=== PATIENT | male | born 1940 | race Caucasian/White ===

== ENCOUNTER 2016-08-09 10:02 | Outpatient (CLI) | payer MEDICARE ==
[2016-08-09 10:24] LABS: Bilirubin Negative (Negative); Blood, Urine Negative (Negative); Clarity Clear (Clear); Glucose, Urine (Dipstick) Negative (Negative); Leukocyte Negative (Negative); Nitrite Negative (Negative); Protein, Urine (Dipstick) Negative (Neg-Trace); Urobilinogen 0.2 mg/dL (0.2-1.0)
[2016-08-09 10:36] LABS: #Basophils 0.1 thou/uL (0.0-0.2); #Eosinphils 0.2 thou/uL (0.0-0.7); #Lymphocytes 1.8 thou/uL (1.20-3.40); #Monocytes 0.6 thou/uL (0.11-0.59); #Neutrophils 3.4 thou/uL (1.40-6.50); %Basophils 1.2 % (0.0-1.0); %Eosinophils 3.2 % (0.0-10.0); %Lymphocytes 30.1 % (21.0-51.0); %Monocytes 9.5 % (0.0-10.0); %Neutrophils 55.9 % (42.0-75.0); Hemoglobin 15.8 g/dL (14.0-18.0); Mean Corpuscular HGB CONC 34.4 g/dL (32.0-36.0); Mean Corpuscular Hemoglobin 33.1 pg (27.0-31.0); Mean Corpuscular Volume 96.2 fl (80.0-94.0); Mean Platelet Volume 6.4 fL (7.4-10.4); Platelet Count 193 thou/uL (130-400); RBC Distribution Width 12.6 % (11.5-14.5); Red Blood Cell (RBC) Count 4.78 mill/uL (4.70-6.10); White Blood Cell (WBC) Count 6.1 thou/uL (4.8-10.8)
[2016-08-09 10:42] LABS: RBC/HPF 0-3 HPF (0-3)
[2016-08-09 11:32] LABS: ALT (SGPT) 46 U/L (0-55); AST (SGOT) 33 U/L (5-34); Alkaline Phosphatase 63 U/L (40-150); Anion Gap 15 mmol/L (10-20); BUN (Urea Nitrogen) 19 mg/dL (8.4-25.7); Bilirubin, Total 0.6 mg/dL (0.2-1.2); Calc. Creatinine Clearance 0 mL/min (70-130); Calcium 9.6 mg/dL (7.8-10.44); Carbon Dioxide 22 mmol/L (23-31); Chloride 110 mmol/L (98-107); Cholesterol 121 mg/dL (< 200 Desired); Estimated GFR-MDRD Greater than 90; Globulin 2.8 g/dL (2.4-3.5); Glucose 118 mg/dL (83-110); HDL Cholesterol 41 mg/dL (>60 Neg Risk); LDL Cholesterol, Calculated 67 mg/dL; Protein, Total 6.8 g/dL (5.8-8.1); Sodium 143 mmol/L (136-145); Triglycerides 63 mg/dL (Less than 150)
== END 2016-08-09 10:03 | disposition home or self-care (01) ==
LOC: MADLABBHPM 10:02
PROVIDERS: ATTEND Internal Medicine Cardiovascular Disease
DX: E78.00 Pure hypercholesterolemia, unspecified (principal); I25.10 Atherosclerotic heart disease of native coronary artery without angina pectoris
CPT/HCPCS: 36415; 80053; 80061; 81001; 84443; 85025

== ENCOUNTER 2016-12-29 09:53 | Outpatient (CLI) | payer MEDICARE ==
[2016-12-29 10:50] LABS: #Basophils 0.1 thou/uL (0.0-0.2); #Eosinphils 0.3 thou/uL (0.0-0.7); #Lymphocytes 1.9 thou/uL (1.20-3.40); #Monocytes 0.5 thou/uL (0.11-0.59); #Neutrophils 3.7 thou/uL (1.40-6.50); %Basophils 1.3 % (0.0-1.0); %Eosinophils 5.1 % (0.0-10.0); %Lymphocytes 29.9 % (21.0-51.0); %Monocytes 7.4 % (0.0-10.0); %Neutrophils 56.3 % (42.0-75.0); Hemoglobin 15.9 g/dL (14.0-18.0); Mean Corpuscular HGB CONC 33.3 g/dL (32.0-36.0); Mean Corpuscular Hemoglobin 31.3 pg (27.0-31.0); Mean Corpuscular Volume 94.1 fl (80.0-94.0); Mean Platelet Volume 7.1 fL (7.4-10.4); Platelet Count 216 thou/uL (130-400); RBC Distribution Width 12.6 % (11.5-14.5); Red Blood Cell (RBC) Count 5.08 mill/uL (4.70-6.10); White Blood Cell (WBC) Count 6.5 thou/uL (4.8-10.8)
[2016-12-29 11:18] LABS: ALT (SGPT) 47 U/L (8-55); AST (SGOT) 37 U/L (5-34); Alkaline Phosphatase 59 U/L (40-150); Anion Gap 13 mmol/L (10-20); BUN (Urea Nitrogen) 21 mg/dL (8.4-25.7); Bilirubin, Direct 0.4 mg/dL (0.1-0.3); Bilirubin, Total 0.8 mg/dL (0.2-1.2); Calc. Creatinine Clearance 0 mL/min (70-130); Calcium 9.8 mg/dL (7.8-10.44); Carbon Dioxide 25 mmol/L (23-31); Cardiac Risk 2.4 (Less than 4.5); Chloride 107 mmol/L (98-107); Cholesterol 115 mg/dl (< 200 Desired); Estimated GFR-MDRD 77; Globulin 3.1 g/dL (2.4-3.5); Glucose 105 mg/dL (83-110); HDL Cholesterol 48 mg/dL (>60 Neg Risk); LDL Cholesterol, Calculated 58 mg/dL; Potassium 4.2 mmol/L (3.5-5.1); Protein, Total 7.1 g/dL (5.8-8.1); Sodium 141 mmol/L (136-145); Triglycerides 43 mg/dL (Less than 150)
== END 2016-12-29 09:54 | disposition home or self-care (01) ==
LOC: MADLAB 09:53
PROVIDERS: ATTEND Internal Medicine Cardiovascular Disease
DX: E78.5 Hyperlipidemia, unspecified (principal); E78.00 Pure hypercholesterolemia, unspecified; I25.10 Atherosclerotic heart disease of native coronary artery without angina pectoris; I10 Essential (primary) hypertension
CPT/HCPCS: 36415; 80053; 80061; 82248; 85025

== ENCOUNTER 2018-07-03 17:30 | Outpatient (CLI) | payer MEDICARE ==
--- NOTE | 2018-07-03 18:34 | RAD ---
LEFT WRIST TWO VIEWS: History: Fall. Left wrist pain. FINDINGS: Overlying fiberglass splint obscures detail. Mild impaction at a distal radial metaphyseal fracture. Neutral tilt. Inclination is maintained. Minimal ulna negative variant remains. Scaphoid waist is int act. Mild osteoarthritic changes throughout the wrist. Erosion at the base of the triquetral. IMPRESSION: 1. Mildly impacted distal radial fracture with neutral tilt. 2. Mild osteoarthritic changes. POS: [facility]
== END 2018-07-03 17:31 | disposition home or self-care (01) ==
LOC: MADRAD 17:30
PROVIDERS: ATTEND Family Medicine
DX: M25.532 Pain in left wrist (principal); S52.502A Unspecified fracture of the lower end of left radius, initial encounter for closed fracture; M19.032 Primary osteoarthritis, left wrist

== ENCOUNTER 2020-03-10 11:45 | Outpatient (CLI) | payer MEDICARE ==
[2020-03-10 12:28] LABS: INR-International Normal Ratio 1.9; Prothrombin Time 22.1 sec (12.0-14.7)
[2020-03-10 12:36] LABS: #Basophils 0.1 thou/uL (0.0-0.2); #Eosinphils 0.2 thou/uL (0.0-0.7); #Lymphocytes 1.4 thou/uL (1.20-3.40); #Monocytes 0.5 thou/uL (0.11-0.59); #Neutrophils 3.6 thou/uL (1.40-6.50); %Basophils 1.4 % (0.0-1.0); %Lymphocytes 24.9 % (21.0-51.0); %Monocytes 8.7 % (0.0-10.0); %Neutrophils 62.1 % (42.0-75.0); Anisocytosis SLIGHT = 6-15 cells (100X) (0-5/hpf); Hemoglobin 10.1 g/dL (14.0-18.0); Hypochromia SLIGHT = 6-15 cells (100X) (0-5/hpf); MDiff Complete? YES; Macrocytosis SLIGHT = 6-15 cells (100X) (0-5/hpf); Mean Corpuscular HGB CONC 30.1 g/dL (32.0-36.0); Mean Corpuscular Hemoglobin 24.7 pg (27.0-31.0); Mean Corpuscular Volume 82.1 fL (78.0-98.0); Mean Platelet Volume 7.2 fL (7.4-10.4); Microcytosis SLIGHT = 6-15 cells (100X) (0-5/hpf); Platelet Count 149 thou/uL (130-400); Platelet Morphology Comment Appears Adequate; RBC Distribution Width 18.1 % (11.5-14.5); Red Blood Cell (RBC) Count 4.09 mill/uL (4.70-6.10); White Blood Cell (WBC) Count 5.8 thou/uL (4.8-10.8)
[2020-03-10 12:39] LABS: ALT (SGPT) 25 U/L (8-55); AST (SGOT) 35 U/L (5-34); Albumin 3.9 g/dL (3.4-4.8); Alkaline Phosphatase 81 U/L (40-110); Anion Gap 16 mmol/L (10-20); BUN (Urea Nitrogen) 25 mg/dL (8.4-25.7); Bilirubin, Total 1.2 mg/dL (0.2-1.2); Calc. Creatinine Clearance 0 mL/min (70-130); Calcium 9.4 mg/dL (7.8-10.44); Carbon Dioxide 22 mmol/L (23-31); Cardiac Risk 1.8 (Less than 4.5); Chloride 110 mmol/L (98-107); Cholesterol 66 mg/dl (< 200 Desired); Estimated GFR-MDRD 54; Globulin 2.9 g/dL (2.4-3.5); Glucose 91 mg/dL (83-110); HDL Cholesterol 37 mg/dL (>60 Neg Risk); LDL Cholesterol, Calculated 22 mg/dL; Potassium 4.5 mmol/L (3.5-5.1); Protein, Total 6.8 g/dL (5.8-8.1); Sodium 143 mmol/L (136-145); Triglycerides 33 mg/dL (Less than 150)
== END 2020-03-10 11:46 | disposition home or self-care (01) ==
LOC: MADLAB 11:45
PROVIDERS: ATTEND Family Medicine
DX: Z13.9 Encounter for screening, unspecified (principal)
CPT/HCPCS: 36415; 80053; 80061; 82105; 85025; 85610

== ENCOUNTER 2020-06-13 10:26 | Outpatient (CLI) | payer MEDICARE ==
[2020-06-13 10:51] LABS: INR-International Normal Ratio 1.4; Prothrombin Time 17.4 sec (12.0-14.7)
[2020-06-13 11:52] LABS: ALT (SGPT) 19 U/L (8-55); AST (SGOT) 28 U/L (5-34); Albumin 4.3 g/dL (3.4-4.8); Alkaline Phosphatase 82 U/L (40-110); Anion Gap 16 mmol/L (10-20); BUN (Urea Nitrogen) 36 mg/dL (8.4-25.7); Calc. Creatinine Clearance 0 mL/min (70-130); Carbon Dioxide 22 mmol/L (23-31); Cardiac Risk 2.4 (Less than 4.5); Chloride 113 mmol/L (98-107); Cholesterol 106 mg/dl (< 200 Desired); Globulin 2.8 g/dL (2.4-3.5); Glucose 82 mg/dL (83-110); HDL Cholesterol 45 mg/dL (>60 Neg Risk); LDL Cholesterol, Calculated 47 mg/dL; Protein, Total 7.1 g/dL (5.8-8.1); Triglycerides 72 mg/dL (Less than 150)
[2020-06-13 13:04] LABS: #Basophils 0.1 thou/uL (0.0-0.2); #Eosinphils 0.2 thou/uL (0.0-0.7); #Lymphocytes 1.8 thou/uL (1.20-3.40); #Monocytes 0.7 thou/uL (0.11-0.59); #Neutrophils 3.7 thou/uL (1.40-6.50); %Basophils 1.3 % (0.0-1.0); %Eosinophils 3.3 % (0.0-10.0); %Lymphocytes 27.6 % (21.0-51.0); %Monocytes 10.3 % (0.0-10.0); %Neutrophils 57.5 % (42.0-75.0); Hemoglobin 13.3 g/dL (14.0-18.0); Mean Corpuscular HGB CONC 30.6 g/dL (32.0-36.0); Mean Corpuscular Hemoglobin 27.1 pg (27.0-31.0); Mean Corpuscular Volume 88.6 fL (78.0-98.0); Mean Platelet Volume 6.4 fL (7.4-10.4); Platelet Count 193 thou/uL (130-400); RBC Distribution Width 20.2 % (11.5-14.5); White Blood Cell (WBC) Count 6.4 thou/uL (4.8-10.8)
[2020-06-13 13:19] LABS: Anisocytosis SLIGHT = 6-15 cells (100X) (0-5/hpf); Critical Call w/ Read Back NP-; Platelet Morphology Comment Appears Adequate; Poikilocytosis SLIGHT = 6-15 cells (100X) (0-5/hpf)
[2020-06-13 13:36] LABS: Sodium 146 mmol/L (136-145)
== END 2020-06-13 10:27 | disposition home or self-care (01) ==
LOC: MADLAB 10:26
PROVIDERS: ATTEND Family Medicine
DX: E78.00 Pure hypercholesterolemia, unspecified (principal); I10 Essential (primary) hypertension; E78.5 Hyperlipidemia, unspecified; K74.60 Unspecified cirrhosis of liver; I25.10 Atherosclerotic heart disease of native coronary artery without angina pectoris
CPT/HCPCS: 36415; 80053; 80061; 84443; 85025; 85610

== ENCOUNTER 2020-10-31 13:28 | Inpatient (IN) | payer MEDICARE ==
[2020-10-31] MEDS ORDERED: Bisacodyl 10 MG SUPP PR PRN (19:00)
[2020-10-31] MEDS ORDERED: DESENEX TOP PRN (19:16)
[2020-10-31] MEDS: Arformoterol 15 MCG/2 ML NEB NEB SCH (20:31)
[2020-10-31] MEDS: Aspirin Chewable 81 MG TAB PO SCH (20:37)
[2020-10-31] MEDS: Metoprolol Tartrate 25 MG TAB PER TUBE SCH (20:37)
[2020-10-31] MEDS: Atorvastatin Calcium 40 MG TAB PO SCH (20:37)
[2020-10-31] MEDS: Rifaximin 550 MG TAB PER TUBE SCH (20:37)
[2020-10-31] MEDS: Apixaban 2.5 MG TAB PER TUBE SCH (20:38)
[2020-10-31] MEDS: Melatonin 3 MG TAB PER TUBE SCH (20:38)
[2020-10-31] MEDS: Chlorhexidine Gluconate 15 ML UDCUP SSP SCH ×2 (20:40→23:30)
[2020-10-31] MEDS: Budesonide 0.5 MG/2 ML NEB NEB SCH (20:40)
[2020-11-01] MEDS: Chlorhexidine Gluconate 15 ML UDCUP SSP SCH ×5 (03:45→21:02)
[2020-11-01 05:25] LABS: #Basophils 0.2 thou/uL (0.0-0.2); #Eosinphils 0.7 thou/uL (0.0-0.7); #Lymphocytes 1.4 thou/uL (1.20-3.40); #Monocytes 0.8 thou/uL (0.11-0.59); #Neutrophils 5.9 thou/uL (1.40-6.50); %Basophils 1.7 % (0.0-1.0); %Lymphocytes 15.7 % (21.0-51.0); %Monocytes 9.1 % (0.0-10.0); %Neutrophils 65.5 % (42.0-75.0); Hemoglobin 10.2 g/dL (14.0-18.0); Mean Corpuscular HGB CONC 31.2 g/dL (32.0-36.0); Mean Corpuscular Hemoglobin 28.3 pg (27.0-31.0); Mean Corpuscular Volume 90.5 fL (78.0-98.0); Platelet Count 288 thou/uL (130-400); RBC Distribution Width 17.8 % (11.5-14.5); Red Blood Cell (RBC) Count 3.59 mill/uL (4.70-6.10); White Blood Cell (WBC) Count 8.9 thou/uL (4.8-10.8)
[2020-11-01 05:39] LABS: ALT (SGPT) 28 U/L (8-55); AST (SGOT) 32 U/L (5-34); Albumin 2.8 g/dL (3.4-4.8); Alkaline Phosphatase 106 U/L (40-110); Anion Gap 13 mmol/L (10-20); BUN (Urea Nitrogen) 14 mg/dL (8.4-25.7); Calc. Creatinine Clearance 112 mL/min (70-130); Calcium 10.3 mg/dL (7.8-10.44); Carbon Dioxide 20 mmol/L (23-31); Chloride 108 mmol/L (98-107); Globulin 3.8 g/dL (2.4-3.5); Glucose 94 mg/dL (83-110); Potassium 4.5 mmol/L (3.5-5.1); Protein, Total 6.6 g/dL (5.8-8.1); Sodium 136 mmol/L (136-145)
[2020-11-01] MEDS: Arformoterol 15 MCG/2 ML NEB NEB SCH ×2 (09:26→21:06)
[2020-11-01] MEDS: Apixaban 2.5 MG TAB PER TUBE SCH ×2 (09:26→21:04)
[2020-11-01] MEDS: Pantoprazole 40 MG GRANULES PACKET PER TUBE SCH (09:26)
[2020-11-01] MEDS: Magnesium Oxide 400 MG TAB PER TUBE SCH (09:26)
[2020-11-01] MEDS: Budesonide 0.5 MG/2 ML NEB NEB SCH ×2 (09:26→21:04)
[2020-11-01] MEDS: Rifaximin 550 MG TAB PER TUBE SCH ×2 (09:26→21:03)
[2020-11-01] MEDS: Multivits W-Minerals Liquid 15 ML LIQ PER TUBE SCH (09:26)
[2020-11-01] MEDS: Metoprolol Tartrate 25 MG TAB PER TUBE SCH ×2 (09:26→21:04)
[2020-11-01] MEDS ORDERED: Pancrelipase DR 12,000 1 CAP FS PRN (16:15)
[2020-11-01] MEDS ORDERED: Sodium Bicarbonate Tab 325 MG TAB PER TUBE PRN (16:15)
[2020-11-01] MEDS: Aspirin Chewable 81 MG TAB PO SCH (21:03)
[2020-11-01] MEDS: Melatonin 3 MG TAB PER TUBE SCH (21:03)
[2020-11-01] MEDS: Atorvastatin Calcium 40 MG TAB PO SCH (21:17)
[2020-11-02] MEDS: Chlorhexidine Gluconate 15 ML UDCUP SSP SCH ×6 (00:40→20:56)
[2020-11-02] MEDS: Multivits W-Minerals Liquid 15 ML LIQ PER TUBE SCH (10:05)
[2020-11-02] MEDS: Budesonide 0.5 MG/2 ML NEB NEB SCH ×2 (10:05→21:00)
[2020-11-02] MEDS: Pantoprazole 40 MG GRANULES PACKET PER TUBE SCH (10:06)
[2020-11-02] MEDS: Rifaximin 550 MG TAB PER TUBE SCH ×2 (10:06→20:56)
[2020-11-02] MEDS: Metoprolol Tartrate 25 MG TAB PER TUBE SCH ×2 (10:06→20:58)
[2020-11-02] MEDS: Apixaban 2.5 MG TAB PER TUBE SCH ×2 (10:06→20:59)
[2020-11-02] MEDS: Arformoterol 15 MCG/2 ML NEB NEB SCH ×2 (10:06→21:02)
[2020-11-02] MEDS: Magnesium Oxide 400 MG TAB PER TUBE SCH (10:06)
[2020-11-02] MEDS: Atorvastatin Calcium 40 MG TAB PO SCH (20:57)
[2020-11-02] MEDS: Aspirin Chewable 81 MG TAB PO SCH (20:58)
[2020-11-02] MEDS: Melatonin 3 MG TAB PER TUBE SCH (20:59)
[2020-11-03] MEDS: Chlorhexidine Gluconate 15 ML UDCUP SSP SCH ×6 (01:25→20:57)
[2020-11-03] MEDS: Budesonide 0.5 MG/2 ML NEB NEB SCH ×2 (09:24→21:24)
[2020-11-03] MEDS: Arformoterol 15 MCG/2 ML NEB NEB SCH ×2 (09:24→20:58)
[2020-11-03] MEDS: Pantoprazole 40 MG GRANULES PACKET PER TUBE SCH (09:25)
[2020-11-03] MEDS: Rifaximin 550 MG TAB PER TUBE SCH ×2 (09:25→21:00)
[2020-11-03] MEDS: Metoprolol Tartrate 25 MG TAB PER TUBE SCH ×2 (09:25→21:00)
[2020-11-03] MEDS: Apixaban 2.5 MG TAB PER TUBE SCH ×2 (09:25→20:57)
[2020-11-03] MEDS: Magnesium Oxide 400 MG TAB PER TUBE SCH (09:25)
[2020-11-03] MEDS: Multivits W-Minerals Liquid 15 ML LIQ PER TUBE SCH (09:25)
[2020-11-03] MEDS: Atorvastatin Calcium 40 MG TAB PO SCH (20:58)
[2020-11-03] MEDS: Aspirin Chewable 81 MG TAB PO SCH (20:58)
[2020-11-03] MEDS: Melatonin 3 MG TAB PER TUBE SCH (20:59)
[2020-11-04] MEDS: Chlorhexidine Gluconate 15 ML UDCUP SSP SCH ×6 (01:04→20:55)
[2020-11-04] MEDS: Rifaximin 550 MG TAB PER TUBE SCH ×2 (08:58→20:58)
[2020-11-04] MEDS: Pantoprazole 40 MG GRANULES PACKET PER TUBE SCH (08:58)
[2020-11-04] MEDS: Apixaban 2.5 MG TAB PER TUBE SCH ×2 (08:59→20:54)
[2020-11-04] MEDS: Magnesium Oxide 400 MG TAB PER TUBE SCH (08:59)
[2020-11-04] MEDS: Metoprolol Tartrate 25 MG TAB PER TUBE SCH ×2 (08:59→20:58)
[2020-11-04] MEDS: Multivits W-Minerals Liquid 15 ML LIQ PER TUBE SCH (08:59)
[2020-11-04] MEDS: Budesonide 0.5 MG/2 ML NEB NEB SCH ×2 (09:00→21:34)
[2020-11-04] MEDS: Arformoterol 15 MCG/2 ML NEB NEB SCH ×2 (09:00→21:35)
[2020-11-04] MEDS: Aspirin Chewable 81 MG TAB PO SCH (20:54)
[2020-11-04] MEDS: Atorvastatin Calcium 40 MG TAB PO SCH (20:57)
[2020-11-04] MEDS: Mirtazapine 15 MG TAB PO SCH (20:59)
[2020-11-04] MEDS: Melatonin 3 MG TAB PER TUBE SCH ×2 (21:37→23:15)
[2020-11-05] MEDS: Chlorhexidine Gluconate 15 ML UDCUP SSP SCH ×6 (03:04→20:31)
[2020-11-05] MEDS: Arformoterol 15 MCG/2 ML NEB NEB SCH ×2 (08:37→20:40)
[2020-11-05] MEDS ORDERED: Ferrous Sulfate 325 MG TAB PO SCH ×2 (09:00→10:00)
[2020-11-05] MEDS: Budesonide 0.5 MG/2 ML NEB NEB SCH ×2 (09:10→20:40)
[2020-11-05] MEDS: Multivits W-Minerals Liquid 15 ML LIQ PER TUBE SCH (09:29)
[2020-11-05] MEDS: Apixaban 2.5 MG TAB PER TUBE SCH ×2 (09:39→20:32)
[2020-11-05] MEDS: Pantoprazole 40 MG GRANULES PACKET PER TUBE SCH ×2 (09:40→09:58)
[2020-11-05] MEDS: Rifaximin 550 MG TAB PER TUBE SCH ×2 (09:40→20:35)
[2020-11-05] MEDS: Metoprolol Tartrate 25 MG TAB PER TUBE SCH ×2 (09:40→20:32)
[2020-11-05] MEDS: Magnesium Oxide 400 MG TAB PER TUBE SCH (09:40)
[2020-11-05] MEDS ORDERED: Multivitamin W/ Minerals 1 TAB PO SCH (10:00)
[2020-11-05] MEDS: Aspirin Chewable 81 MG TAB PO SCH (20:32)
[2020-11-05] MEDS: Mirtazapine 15 MG TAB PO SCH (20:35)
[2020-11-05] MEDS: Atorvastatin Calcium 40 MG TAB PO SCH (20:35)
[2020-11-05] MEDS: Melatonin 3 MG TAB PER TUBE SCH ×2 (20:43→21:18)
[2020-11-05] MEDS: Acetaminophen 325 MG TAB PO PRN (21:18)
[2020-11-06] MEDS: Chlorhexidine Gluconate 15 ML UDCUP SSP SCH ×6 (01:33→21:54)
[2020-11-06] MEDS: Magnesium Oxide 400 MG TAB PER TUBE SCH (08:38)
[2020-11-06] MEDS: Multivitamin W/ Minerals 1 TAB PO SCH (08:38)
[2020-11-06] MEDS: Arformoterol 15 MCG/2 ML NEB NEB SCH ×2 (08:38→21:25)
[2020-11-06] MEDS: Budesonide 0.5 MG/2 ML NEB NEB SCH ×2 (08:38→21:26)
[2020-11-06] MEDS: Metoprolol Tartrate 25 MG TAB PER TUBE SCH ×2 (08:38→21:27)
[2020-11-06] MEDS: Apixaban 2.5 MG TAB PER TUBE SCH ×2 (08:38→21:25)
[2020-11-06] MEDS: Rifaximin 550 MG TAB PER TUBE SCH ×2 (08:38→21:27)
[2020-11-06] MEDS: Aspirin Chewable 81 MG TAB PO SCH (21:25)
[2020-11-06] MEDS: Atorvastatin Calcium 40 MG TAB PO SCH (21:26)
[2020-11-06] MEDS: Mirtazapine 15 MG TAB PO SCH (21:27)
[2020-11-06] MEDS: Melatonin 3 MG TAB PER TUBE SCH (21:29)
[2020-11-06] MEDS: Acetaminophen 325 MG TAB PO PRN (21:32)
[2020-11-07] MEDS: Chlorhexidine Gluconate 15 ML UDCUP SSP SCH ×6 (00:42→20:50)
[2020-11-07] MEDS: Metoprolol Tartrate 25 MG TAB PER TUBE SCH ×2 (09:09→20:53)
[2020-11-07] MEDS: Ferrous Sulfate 325 MG TAB PO SCH (09:09)
[2020-11-07] MEDS: Multivitamin W/ Minerals 1 TAB PO SCH (09:09)
[2020-11-07] MEDS: Rifaximin 550 MG TAB PER TUBE SCH ×2 (09:09→20:54)
[2020-11-07] MEDS: Magnesium Oxide 400 MG TAB PER TUBE SCH (09:09)
[2020-11-07] MEDS: Apixaban 2.5 MG TAB PER TUBE SCH ×2 (09:09→20:50)
[2020-11-07] MEDS: Arformoterol 15 MCG/2 ML NEB NEB SCH ×2 (09:10→20:51)
[2020-11-07] MEDS: Budesonide 0.5 MG/2 ML NEB NEB SCH ×2 (09:10→20:52)
[2020-11-07 10:36] VITALS: BMI 28.5
[2020-11-07] MEDS: Aspirin Chewable 81 MG TAB PO SCH (20:51)
[2020-11-07] MEDS: Atorvastatin Calcium 40 MG TAB PO SCH (20:51)
[2020-11-07] MEDS: Mirtazapine 15 MG TAB PO SCH (20:53)
[2020-11-07] MEDS: Melatonin 3 MG TAB PER TUBE SCH (20:54)
[2020-11-07] MEDS: Mupirocin 2% Ointment 22 GM Tube TOP SCH (20:54)
[2020-11-08] MEDS: Chlorhexidine Gluconate 15 ML UDCUP SSP SCH ×6 (04:23→20:17)
[2020-11-08] MEDS: Magnesium Oxide 400 MG TAB PER TUBE SCH (08:14)
[2020-11-08] MEDS: Rifaximin 550 MG TAB PER TUBE SCH ×2 (08:14→20:04)
[2020-11-08] MEDS: Apixaban 2.5 MG TAB PER TUBE SCH ×2 (08:14→20:04)
[2020-11-08] MEDS: Arformoterol 15 MCG/2 ML NEB NEB SCH ×2 (08:14→20:04)
[2020-11-08] MEDS: Budesonide 0.5 MG/2 ML NEB NEB SCH ×2 (08:17→20:17)
[2020-11-08] MEDS: Metoprolol Tartrate 25 MG TAB PER TUBE SCH ×2 (08:18→20:04)
[2020-11-08] MEDS: Multivitamin W/ Minerals 1 TAB PO SCH (08:18)
[2020-11-08] MEDS: Acetaminophen 325 MG TAB PO PRN (15:24)
[2020-11-08] MEDS: Mupirocin 2% Ointment 22 GM Tube TOP SCH (20:00)
[2020-11-08] MEDS: Mirtazapine 15 MG TAB PO SCH (20:04)
[2020-11-08] MEDS: Atorvastatin Calcium 40 MG TAB PO SCH (20:04)
[2020-11-08] MEDS: Aspirin Chewable 81 MG TAB PO SCH (20:04)
[2020-11-08] MEDS: Melatonin 3 MG TAB PER TUBE SCH (20:04)
[2020-11-09] MEDS: Chlorhexidine Gluconate 15 ML UDCUP SSP SCH ×6 (04:19→20:30)
[2020-11-09] MEDS: Budesonide 0.5 MG/2 ML NEB NEB SCH ×2 (08:09→20:27)
[2020-11-09] MEDS: Arformoterol 15 MCG/2 ML NEB NEB SCH ×2 (08:09→20:27)
[2020-11-09] MEDS: Metoprolol Tartrate 25 MG TAB PER TUBE SCH ×2 (08:10→20:29)
[2020-11-09] MEDS: Magnesium Oxide 400 MG TAB PER TUBE SCH (08:10)
[2020-11-09] MEDS: Multivitamin W/ Minerals 1 TAB PO SCH (08:10)
[2020-11-09] MEDS: Rifaximin 550 MG TAB PER TUBE SCH ×2 (08:10→20:28)
[2020-11-09] MEDS: Apixaban 2.5 MG TAB PER TUBE SCH ×2 (08:10→20:27)
[2020-11-09] MEDS: Melatonin 3 MG TAB PER TUBE SCH (20:27)
[2020-11-09] MEDS: Mirtazapine 15 MG TAB PO SCH (20:27)
[2020-11-09] MEDS: Mupirocin 2% Ointment 22 GM Tube TOP SCH (20:30)
[2020-11-09] MEDS: Aspirin Chewable 81 MG TAB PO SCH (20:30)
[2020-11-09] MEDS: Atorvastatin Calcium 40 MG TAB PO SCH (20:30)
[2020-11-10] MEDS: Chlorhexidine Gluconate 15 ML UDCUP SSP SCH ×6 (00:10→20:04)
[2020-11-10] MEDS: Acetaminophen 325 MG TAB PO PRN (04:57)
[2020-11-10 05:48] LABS: #Basophils 0.1 thou/uL (0.0-0.2); #Eosinphils 0.5 thou/uL (0.0-0.7); #Lymphocytes 1.5 thou/uL (1.20-3.40); #Monocytes 0.6 thou/uL (0.11-0.59); #Neutrophils 3.8 thou/uL (1.40-6.50); %Lymphocytes 23.6 % (21.0-51.0); %Monocytes 8.5 % (0.0-10.0); %Neutrophils 59.8 % (42.0-75.0); Hemoglobin 10.8 g/dL (14.0-18.0); Mean Corpuscular HGB CONC 29.9 g/dL (32.0-36.0); Mean Corpuscular Hemoglobin 27.2 pg (27.0-31.0); Mean Corpuscular Volume 91.2 fL (78.0-98.0); Mean Platelet Volume 6.8 fL (7.4-10.4); Platelet Count 241 thou/uL (130-400); RBC Distribution Width 17.7 % (11.5-14.5); Red Blood Cell (RBC) Count 3.96 mill/uL (4.70-6.10); White Blood Cell (WBC) Count 6.4 thou/uL (4.8-10.8)
[2020-11-10 06:06] LABS: ALT (SGPT) 24 U/L (8-55); AST (SGOT) 29 U/L (5-34); Albumin 2.8 g/dL (3.4-4.8); Alkaline Phosphatase 88 U/L (40-110); Anion Gap 14 mmol/L (10-20); BUN (Urea Nitrogen) 11 mg/dL (8.4-25.7); Calc. Creatinine Clearance 109 mL/min (70-130); Calcium 9.8 mg/dL (7.8-10.44); Carbon Dioxide 21 mmol/L (23-31); Chloride 112 mmol/L (98-107); Globulin 3.5 g/dL (2.4-3.5); Glucose 79 mg/dL (83-110); Potassium 3.8 mmol/L (3.5-5.1); Protein, Total 6.3 g/dL (5.8-8.1); Sodium 143 mmol/L (136-145)
[2020-11-10] MEDS: Metoprolol Tartrate 25 MG TAB PER TUBE SCH ×2 (08:36→20:04)
[2020-11-10] MEDS: Apixaban 2.5 MG TAB PER TUBE SCH ×2 (08:36→20:04)
[2020-11-10] MEDS: Ferrous Sulfate 325 MG TAB PO SCH (08:36)
[2020-11-10] MEDS: Budesonide 0.5 MG/2 ML NEB NEB SCH ×2 (08:36→20:04)
[2020-11-10] MEDS: Magnesium Oxide 400 MG TAB PER TUBE SCH (08:37)
[2020-11-10] MEDS: Multivitamin W/ Minerals 1 TAB PO SCH (08:37)
[2020-11-10] MEDS: Rifaximin 550 MG TAB PER TUBE SCH ×2 (08:37→20:04)
[2020-11-10] MEDS: Arformoterol 15 MCG/2 ML NEB NEB SCH ×2 (08:37→20:04)
[2020-11-10] MEDS: Atorvastatin Calcium 40 MG TAB PO SCH (20:04)
[2020-11-10] MEDS: Aspirin Chewable 81 MG TAB PO SCH (20:04)
[2020-11-10] MEDS: Melatonin 3 MG TAB PER TUBE SCH (20:04)
[2020-11-10] MEDS: Mirtazapine 15 MG TAB PO SCH (20:05)
[2020-11-10] MEDS: Mupirocin 2% Ointment 22 GM Tube TOP SCH (20:07)
[2020-11-11] MEDS: Chlorhexidine Gluconate 15 ML UDCUP SSP SCH ×6 (00:25→21:21)
[2020-11-11] MEDS ORDERED: Calcium Carbonate 500 MG ChewTAB PO PRN (08:24)
[2020-11-11] MEDS: Arformoterol 15 MCG/2 ML NEB NEB SCH ×2 (08:43→21:22)
[2020-11-11] MEDS: Multivitamin W/ Minerals 1 TAB PO SCH (08:44)
[2020-11-11] MEDS: Magnesium Oxide 400 MG TAB PER TUBE SCH (08:44)
[2020-11-11] MEDS: Metoprolol Tartrate 25 MG TAB PER TUBE SCH ×2 (08:44→21:23)
[2020-11-11] MEDS: Rifaximin 550 MG TAB PER TUBE SCH ×2 (08:44→21:22)
[2020-11-11] MEDS: Budesonide 0.5 MG/2 ML NEB NEB SCH ×2 (08:44→21:28)
[2020-11-11] MEDS: Apixaban 2.5 MG TAB PER TUBE SCH ×2 (08:44→21:23)
[2020-11-11] MEDS: Mirtazapine 15 MG TAB PO SCH (21:22)
[2020-11-11] MEDS: Aspirin Chewable 81 MG TAB PO SCH (21:22)
[2020-11-11] MEDS: Melatonin 3 MG TAB PER TUBE SCH (21:22)
[2020-11-11] MEDS: Atorvastatin Calcium 40 MG TAB PO SCH (21:23)
[2020-11-11] MEDS: Mupirocin 2% Ointment 22 GM Tube TOP SCH (21:30)
[2020-11-12] MEDS: Chlorhexidine Gluconate 15 ML UDCUP SSP SCH ×3 (00:36→08:50)
[2020-11-12] MEDS: Acetaminophen 325 MG TAB PO PRN (04:27)
[2020-11-12] MEDS: Arformoterol 15 MCG/2 ML NEB NEB SCH ×2 (08:42→20:14)
[2020-11-12] MEDS: Magnesium Oxide 400 MG TAB PER TUBE SCH (08:43)
[2020-11-12] MEDS: Ferrous Sulfate 325 MG TAB PO SCH (08:43)
[2020-11-12] MEDS: Apixaban 2.5 MG TAB PER TUBE SCH ×2 (08:43→20:14)
[2020-11-12] MEDS: Budesonide 0.5 MG/2 ML NEB NEB SCH ×2 (08:43→20:15)
[2020-11-12] MEDS: Multivitamin W/ Minerals 1 TAB PO SCH (08:43)
[2020-11-12] MEDS: Metoprolol Tartrate 25 MG TAB PER TUBE SCH ×2 (08:44→20:15)
[2020-11-12] MEDS: Rifaximin 550 MG TAB PER TUBE SCH ×2 (08:44→20:16)
[2020-11-12] MEDS: Aspirin Chewable 81 MG TAB PO SCH (20:14)
[2020-11-12] MEDS: Atorvastatin Calcium 40 MG TAB PO SCH (20:15)
[2020-11-12] MEDS: Mupirocin 2% Ointment 22 GM Tube TOP SCH (20:16)
[2020-11-12] MEDS: Mirtazapine 15 MG TAB PO SCH (20:16)
[2020-11-12] MEDS: Melatonin 3 MG TAB PER TUBE SCH (20:17)
[2020-11-13] MEDS: Acetaminophen 325 MG TAB PO PRN (00:09)
[2020-11-13 03:31] VITALS: BP 127/68; TEMP 96.3
== END 2020-11-13 03:44 | disposition short-term general hospital (02) | DRG 947 ==
LOC: MADMS 16:21
PROVIDERS: ADMIT Family Medicine; ATTEND Family Medicine
DX: R53.81 Other malaise (principal); G93.41 Metabolic encephalopathy; J96.90 Respiratory failure, unspecified, unspecified whether with hypoxia or hypercapnia; G93.40 Encephalopathy, unspecified; I42.2 Other hypertrophic cardiomyopathy; I25.10 Atherosclerotic heart disease of native coronary artery without angina pectoris; I48.91 Unspecified atrial fibrillation; I10 Essential (primary) hypertension; K74.60 Unspecified cirrhosis of liver; Z66 Do not resuscitate; E78.5 Hyperlipidemia, unspecified; E66.9 Obesity, unspecified; R13.10 Dysphagia, unspecified; I48.0 Paroxysmal atrial fibrillation; G47.33 Obstructive sleep apnea (adult) (pediatric); Z79.82 Long term (current) use of aspirin; Z79.899 Other long term (current) drug therapy; Z95.1 Presence of aortocoronary bypass graft; Z95.5 Presence of coronary angioplasty implant and graft; Z90.49 Acquired absence of other specified parts of digestive tract; Z88.1 Allergy status to other antibiotic agents; Z88.0 Allergy status to penicillin; Z88.5 Allergy status to narcotic agent; Z86.73 Personal history of transient ischemic attack (TIA), and cerebral infarction without residual deficits
CPT/HCPCS: 36415; 80053; 85025; 94640; J7620; J7626

== ENCOUNTER 2020-11-13 02:57 | Emergency (ER) | payer MEDICARE ==
[2020-11-13 03:24] LABS: #Basophils 0.1 thou/uL (0.0-0.2); #Eosinphils 0.5 thou/uL (0.0-0.7); #Lymphocytes 1.7 thou/uL (1.20-3.40); #Monocytes 0.5 thou/uL (0.11-0.59); #Neutrophils 4.3 thou/uL (1.40-6.50); %Basophils 1.3 % (0.0-1.0); %Eosinophils 7.3 % (0.0-10.0); %Lymphocytes 23.3 % (21.0-51.0); %Monocytes 7.3 % (0.0-10.0); %Neutrophils 60.7 % (42.0-75.0); Hemoglobin 10.3 g/dL (14.0-18.0); Mean Corpuscular HGB CONC 31.2 g/dL (32.0-36.0); Mean Corpuscular Volume 89.8 fL (78.0-98.0); Mean Platelet Volume 7.7 fL (7.4-10.4); Platelet Count 229 thou/uL (130-400); RBC Distribution Width 18.2 % (11.5-14.5); Red Blood Cell (RBC) Count 3.66 mill/uL (4.70-6.10); White Blood Cell (WBC) Count 7.1 thou/uL (4.8-10.8)
[2020-11-13] MEDS ORDERED: Fentanyl 100 MCG/2 ML VIAL ONE ×4 (03:27→10:44)
[2020-11-13 03:53] LABS: INR-International Normal Ratio 1.7; Prothrombin Time 19.9 sec (12.0-14.7)
[2020-11-13 03:54] LABS: PTT 42.1 sec (22.9-36.1)
[2020-11-13 04:02] LABS: ALT (SGPT) 21 U/L (8-55); AST (SGOT) 28 U/L (5-34); Albumin 2.7 g/dL (3.4-4.8); Alkaline Phosphatase 86 U/L (40-110); Anion Gap 11 mmol/L (10-20); BUN (Urea Nitrogen) 13 mg/dL (8.4-25.7); Bilirubin, Total 0.9 mg/dL (0.2-1.2); Calc. Creatinine Clearance 0 mL/min (70-130); Calcium 9.6 mg/dL (7.8-10.44); Carbon Dioxide 24 mmol/L (23-31); Chloride 112 mmol/L (98-107); Globulin 3.2 g/dL (2.4-3.5); Glucose 101 mg/dL (83-110); Protein, Total 5.9 g/dL (5.8-8.1); Sodium 143 mmol/L (136-145)
[2020-11-13] MEDS ORDERED: Ondansetron PF 4 MG/2 ML Vial ONE (10:23)
== END 2020-11-13 11:56 | disposition short-term general hospital (02) ==
LOC: MADERS 02:57
DX: S72.141A Displaced intertrochanteric fracture of right femur, initial encounter for closed fracture (principal); I25.10 Atherosclerotic heart disease of native coronary artery without angina pectoris; I11.0 Hypertensive heart disease with heart failure; I50.9 Heart failure, unspecified; I73.9 Peripheral vascular disease, unspecified; I48.91 Unspecified atrial fibrillation; E78.5 Hyperlipidemia, unspecified; G93.40 Encephalopathy, unspecified; G47.00 Insomnia, unspecified; M19.90 Unspecified osteoarthritis, unspecified site; G47.30 Sleep apnea, unspecified; Z79.82 Long term (current) use of aspirin; Z79.01 Long term (current) use of anticoagulants; Z79.899 Other long term (current) drug therapy; W19.XXXA Unspecified fall, initial encounter
CPT/HCPCS: 71045; 80053; 84484; 85025; 85610; 85730; 93005; 96374; 96375; 96376; J2405; J3010

== ENCOUNTER 2020-11-18 13:25 | Inpatient (IN) | payer MEDICARE ==
[2020-11-18] MEDS: Atorvastatin Calcium 40 MG TAB PO SCH (20:43)
[2020-11-18] MEDS: Aspirin 81 mg Enteric Coated Tablet PO SCH (20:44)
[2020-11-18] MEDS: Mirtazapine 15 MG TAB PO SCH (20:44)
[2020-11-18] MEDS: Rifaximin 550 MG TAB PO SCH (20:44)
[2020-11-18] MEDS: Melatonin 3 MG TAB PO SCH (20:45)
[2020-11-18] MEDS: Metoprolol Tartrate 25 MG TAB PO SCH (20:47)
[2020-11-18] MEDS: Arformoterol 15 MCG/2 ML NEB NEB SCH (20:49)
[2020-11-18] MEDS: Budesonide 0.5 MG/2 ML NEB NEB SCH (20:51)
[2020-11-18] MEDS: Acetaminophen 325 MG TAB PO PRN (20:57)
[2020-11-19] MEDS: Acetaminophen 325 MG TAB PO PRN ×2 (03:03→21:10)
[2020-11-19 07:14] LABS: #Basophils 0.1 thou/uL (0.0-0.2); #Eosinphils 0.8 thou/uL (0.0-0.7); #Lymphocytes 1.3 thou/uL (1.20-3.40); #Monocytes 0.6 thou/uL (0.11-0.59); #Neutrophils 3.6 thou/uL (1.40-6.50); %Basophils 1.7 % (0.0-1.0); %Eosinophils 13.1 % (0.0-10.0); %Lymphocytes 19.9 % (21.0-51.0); %Monocytes 9.2 % (0.0-10.0); %Neutrophils 56.2 % (42.0-75.0); Mean Corpuscular Hemoglobin 27.7 pg (27.0-31.0); Mean Corpuscular Volume 92.3 fL (78.0-98.0); Mean Platelet Volume 7.2 fL (7.4-10.4); Platelet Count 207 thou/uL (130-400); RBC Distribution Width 18.6 % (11.5-14.5); Red Blood Cell (RBC) Count 3.27 mill/uL (4.70-6.10); White Blood Cell (WBC) Count 6.4 thou/uL (4.8-10.8)
[2020-11-19 07:17] LABS: ALT (SGPT) 10 U/L (8-55); AST (SGOT) 27 U/L (5-34); Albumin 2.5 g/dL (3.4-4.8); Alkaline Phosphatase 97 U/L (40-110); Anion Gap 12 mmol/L (10-20); BUN (Urea Nitrogen) 18 mg/dL (8.4-25.7); Bilirubin, Total 1.9 mg/dL (0.2-1.2); Calc. Creatinine Clearance 100 mL/min (70-130); Calcium 9.1 mg/dL (7.8-10.44); Carbon Dioxide 23 mmol/L (23-31); Chloride 104 mmol/L (98-107); Globulin 3.4 g/dL (2.4-3.5); Glucose 91 mg/dL (83-110); Potassium 4.1 mmol/L (3.5-5.1); Protein, Total 5.9 g/dL (5.8-8.1); Sodium 135 mmol/L (136-145)
[2020-11-19 07:38] LABS: Platelet Morphology Comment Appears Adequate; RBC Morphology N
[2020-11-19] MEDS: Aspirin 81 mg Enteric Coated Tablet PO SCH ×2 (08:27→20:05)
[2020-11-19] MEDS: Ferrous Sulfate 325 MG TAB PO SCH (08:27)
[2020-11-19] MEDS: traMADol HCl 50 MG TAB PO PRN (08:27)
[2020-11-19] MEDS: Arformoterol 15 MCG/2 ML NEB NEB SCH ×2 (08:28→20:04)
[2020-11-19] MEDS: Metoprolol Tartrate 25 MG TAB PO SCH ×2 (08:28→20:05)
[2020-11-19] MEDS: Magnesium Oxide 400 MG TAB PO SCH (08:28)
[2020-11-19] MEDS: Rifaximin 550 MG TAB PO SCH ×2 (08:28→20:05)
[2020-11-19] MEDS: Budesonide 0.5 MG/2 ML NEB NEB SCH ×2 (08:28→20:05)
[2020-11-19] MEDS: Melatonin 3 MG TAB PO SCH (20:05)
[2020-11-19] MEDS: Mirtazapine 15 MG TAB PO SCH (20:05)
[2020-11-19] MEDS: Atorvastatin Calcium 40 MG TAB PO SCH (20:05)
[2020-11-20] MEDS: traMADol HCl 50 MG TAB PO PRN (02:02)
[2020-11-20] MEDS: Acetaminophen 325 MG TAB PO PRN (07:19)
[2020-11-20] MEDS: Budesonide 0.5 MG/2 ML NEB NEB SCH ×2 (08:07→20:13)
[2020-11-20] MEDS: Metoprolol Tartrate 25 MG TAB PO SCH ×2 (08:07→20:13)
[2020-11-20] MEDS: Rifaximin 550 MG TAB PO SCH ×2 (08:07→20:13)
[2020-11-20] MEDS: Arformoterol 15 MCG/2 ML NEB NEB SCH ×2 (08:07→20:13)
[2020-11-20] MEDS: Magnesium Oxide 400 MG TAB PO SCH (08:07)
[2020-11-20] MEDS: Aspirin 81 mg Enteric Coated Tablet PO SCH ×2 (08:08→20:13)
[2020-11-20] MEDS: Ferrous Sulfate 325 MG TAB PO SCH (08:08)
[2020-11-20] MEDS: Mirtazapine 15 MG TAB PO SCH (20:13)
[2020-11-20] MEDS: Melatonin 3 MG TAB PO SCH (20:13)
[2020-11-20] MEDS: Atorvastatin Calcium 40 MG TAB PO SCH (20:14)
[2020-11-21] MEDS: traMADol HCl 50 MG TAB PO PRN (01:57)
[2020-11-21] MEDS: Acetaminophen 325 MG TAB PO PRN (05:22)
[2020-11-21] MEDS: Aspirin 81 mg Enteric Coated Tablet PO SCH ×2 (09:21→21:31)
[2020-11-21] MEDS: Ferrous Sulfate 325 MG TAB PO SCH (09:22)
[2020-11-21] MEDS: Rifaximin 550 MG TAB PO SCH ×2 (09:22→21:31)
[2020-11-21] MEDS: Arformoterol 15 MCG/2 ML NEB NEB SCH ×2 (09:22→21:30)
[2020-11-21] MEDS: Budesonide 0.5 MG/2 ML NEB NEB SCH ×2 (09:22→21:33)
[2020-11-21] MEDS: Metoprolol Tartrate 25 MG TAB PO SCH ×2 (09:22→21:33)
[2020-11-21] MEDS: Magnesium Oxide 400 MG TAB PO SCH (09:22)
[2020-11-21] MEDS: Acetaminophen 325 MG TAB PO SCH ×2 (14:28→18:21)
[2020-11-21] MEDS: Melatonin 3 MG TAB PO SCH (21:31)
[2020-11-21] MEDS: Atorvastatin Calcium 40 MG TAB PO SCH (21:32)
[2020-11-21] MEDS: Mirtazapine 15 MG TAB PO SCH (21:33)
[2020-11-22] MEDS: Acetaminophen 325 MG TAB PO SCH ×4 (00:25→18:22)
[2020-11-22] MEDS ORDERED: Acetaminophen 325 MG TAB PO SCH (08:15)
[2020-11-22] MEDS: Rifaximin 550 MG TAB PO SCH ×2 (08:38→21:25)
[2020-11-22] MEDS: Magnesium Oxide 400 MG TAB PO SCH (08:38)
[2020-11-22] MEDS: Aspirin 81 mg Enteric Coated Tablet PO SCH ×2 (08:38→21:30)
[2020-11-22] MEDS: Metoprolol Tartrate 25 MG TAB PO SCH ×2 (08:38→21:25)
[2020-11-22] MEDS: Ferrous Sulfate 325 MG TAB PO SCH (08:38)
[2020-11-22] MEDS: Arformoterol 15 MCG/2 ML NEB NEB SCH ×3 (08:39→21:35)
[2020-11-22] MEDS: Budesonide 0.5 MG/2 ML NEB NEB SCH ×2 (08:43→21:30)
[2020-11-22] MEDS: Melatonin 3 MG TAB PO SCH (21:20)
[2020-11-22] MEDS: Mirtazapine 15 MG TAB PO SCH (21:25)
[2020-11-22] MEDS: Atorvastatin Calcium 40 MG TAB PO SCH (21:30)
[2020-11-23] MEDS: Acetaminophen 325 MG TAB PO SCH ×6 (00:11→23:41)
[2020-11-23] MEDS: traMADol HCl 50 MG TAB PO PRN (03:12)
[2020-11-23] MEDS: Arformoterol 15 MCG/2 ML NEB NEB SCH ×2 (08:23→21:34)
[2020-11-23] MEDS: Ferrous Sulfate 325 MG TAB PO SCH (08:23)
[2020-11-23] MEDS: Aspirin 81 mg Enteric Coated Tablet PO SCH ×2 (08:23→21:34)
[2020-11-23] MEDS: Rifaximin 550 MG TAB PO SCH ×2 (08:26→21:34)
[2020-11-23] MEDS: Metoprolol Tartrate 25 MG TAB PO SCH ×2 (08:26→21:34)
[2020-11-23] MEDS: Magnesium Oxide 400 MG TAB PO SCH (08:26)
[2020-11-23] MEDS: Budesonide 0.5 MG/2 ML NEB NEB SCH ×2 (08:31→21:34)
[2020-11-23] MEDS: Melatonin 3 MG TAB PO SCH (21:34)
[2020-11-23] MEDS: Atorvastatin Calcium 40 MG TAB PO SCH (21:34)
[2020-11-23] MEDS: Mirtazapine 15 MG TAB PO SCH (21:34)
[2020-11-24] MEDS: traMADol HCl 50 MG TAB PO PRN ×2 (03:25→15:25)
[2020-11-24] MEDS: Acetaminophen 325 MG TAB PO SCH ×4 (05:58→23:48)
[2020-11-24] MEDS: Ferrous Sulfate 325 MG TAB PO SCH (08:15)
[2020-11-24] MEDS: Aspirin 81 mg Enteric Coated Tablet PO SCH ×2 (08:16→21:52)
[2020-11-24] MEDS: Rifaximin 550 MG TAB PO SCH ×2 (08:16→21:53)
[2020-11-24] MEDS: Magnesium Oxide 400 MG TAB PO SCH (08:17)
[2020-11-24] MEDS: Budesonide 0.5 MG/2 ML NEB NEB SCH ×2 (08:17→21:52)
[2020-11-24] MEDS: Arformoterol 15 MCG/2 ML NEB NEB SCH ×2 (08:18→21:51)
[2020-11-24] MEDS: Metoprolol Tartrate 25 MG TAB PO SCH ×2 (08:21→21:53)
[2020-11-24] MEDS ORDERED: Ondansetron ODT 4 MG TAB PO PRN (18:02)
[2020-11-24] MEDS: Atorvastatin Calcium 40 MG TAB PO SCH (21:52)
[2020-11-24] MEDS: Melatonin 3 MG TAB PO SCH (21:52)
[2020-11-24] MEDS: Mirtazapine 15 MG TAB PO SCH (21:53)
[2020-11-24] MEDS: Cyclobenzaprine 10 MG TAB PO PRN (23:50)
[2020-11-25] MEDS: Acetaminophen 325 MG TAB PO SCH ×3 (05:42→17:10)
[2020-11-25] MEDS: Budesonide 0.5 MG/2 ML NEB NEB SCH ×2 (08:09→21:23)
[2020-11-25] MEDS: Ferrous Sulfate 325 MG TAB PO SCH (08:12)
[2020-11-25] MEDS: Arformoterol 15 MCG/2 ML NEB NEB SCH ×2 (08:12→21:21)
[2020-11-25] MEDS: Cyclobenzaprine 10 MG TAB PO PRN (08:12)
[2020-11-25] MEDS: Metoprolol Tartrate 25 MG TAB PO SCH ×2 (08:12→21:23)
[2020-11-25] MEDS: Rifaximin 550 MG TAB PO SCH ×2 (08:12→21:22)
[2020-11-25] MEDS: Magnesium Oxide 400 MG TAB PO SCH (08:12)
[2020-11-25] MEDS: Aspirin 81 mg Enteric Coated Tablet PO SCH ×2 (08:12→21:22)
[2020-11-25] MEDS ORDERED: Metoprolol Tartrate 25 MG TAB ONE (20:17)
[2020-11-25] MEDS: Melatonin 3 MG TAB PO SCH (21:22)
[2020-11-25] MEDS: Atorvastatin Calcium 40 MG TAB PO SCH (21:22)
[2020-11-25] MEDS: Mirtazapine 15 MG TAB PO SCH (21:22)
[2020-11-26] MEDS: traMADol HCl 50 MG TAB PO PRN (00:05)
[2020-11-26] MEDS: Acetaminophen 325 MG TAB PO SCH ×5 (00:06→23:51)
[2020-11-26] MEDS: Ferrous Sulfate 325 MG TAB PO SCH (07:44)
[2020-11-26] MEDS: Aspirin 81 mg Enteric Coated Tablet PO SCH ×2 (09:07→20:42)
[2020-11-26] MEDS: Rifaximin 550 MG TAB PO SCH ×2 (09:07→20:42)
[2020-11-26] MEDS: Budesonide 0.5 MG/2 ML NEB NEB SCH ×2 (09:07→20:46)
[2020-11-26] MEDS: Metoprolol Tartrate 25 MG TAB PO SCH ×2 (09:07→20:44)
[2020-11-26] MEDS: Magnesium Oxide 400 MG TAB PO SCH (09:09)
[2020-11-26] MEDS: Arformoterol 15 MCG/2 ML NEB NEB SCH ×2 (09:09→20:45)
[2020-11-26] MEDS: Melatonin 3 MG TAB PO SCH (20:42)
[2020-11-26] MEDS: Mirtazapine 15 MG TAB PO SCH (20:43)
[2020-11-26] MEDS: Atorvastatin Calcium 40 MG TAB PO SCH (20:44)
[2020-11-26] MEDS: Acetaminophen/Codeine 30-300mg Tablet PO PRN (22:45)
[2020-11-27] MEDS: Acetaminophen 325 MG TAB PO SCH ×3 (06:14→17:57)
[2020-11-27] MEDS: Acetaminophen/Codeine 30-300mg Tablet PO PRN ×3 (06:17→21:28)
[2020-11-27] MEDS: Budesonide 0.5 MG/2 ML NEB NEB SCH ×2 (08:09→21:21)
[2020-11-27] MEDS: Rifaximin 550 MG TAB PO SCH ×2 (08:09→21:22)
[2020-11-27] MEDS: Arformoterol 15 MCG/2 ML NEB NEB SCH ×2 (08:09→21:25)
[2020-11-27] MEDS: Aspirin 81 mg Enteric Coated Tablet PO SCH ×2 (08:09→21:22)
[2020-11-27] MEDS: Ferrous Sulfate 325 MG TAB PO SCH (08:09)
[2020-11-27] MEDS: Metoprolol Tartrate 25 MG TAB PO SCH ×2 (08:09→21:23)
[2020-11-27] MEDS: Magnesium Oxide 400 MG TAB PO SCH (08:09)
[2020-11-27] MEDS: Melatonin 3 MG TAB PO SCH (21:22)
[2020-11-27] MEDS: Atorvastatin Calcium 40 MG TAB PO SCH (21:23)
[2020-11-27] MEDS: Mirtazapine 15 MG TAB PO SCH (21:23)
[2020-11-28] MEDS: Acetaminophen 325 MG TAB PO SCH ×5 (01:36→23:27)
[2020-11-28] MEDS ORDERED: Acetaminophen/Codeine 30-300mg Tablet PO SCH (04:45)
[2020-11-28 05:21] LABS: #Basophils 0.1 thou/uL (0.0-0.2); #Eosinphils 0.5 thou/uL (0.0-0.7); #Lymphocytes 2.1 thou/uL (1.20-3.40); #Monocytes 0.2 thou/uL (0.11-0.59); #Neutrophils 5.4 thou/uL (1.40-6.50); %Basophils 1.1 % (0.0-1.0); %Eosinophils 5.8 % (0.0-10.0); %Lymphocytes 25.5 % (21.0-51.0); %Neutrophils 65.6 % (42.0-75.0); Anisocytosis SLIGHT = 6-15 cells (100X) (0-5/hpf); Bite Cells SLIGHT = 2-5 cells (100X) (0-1/hpf); Hemoglobin 11.2 g/dL (14.0-18.0); MDiff Complete? YES; Mean Corpuscular HGB CONC 28.5 g/dL (32.0-36.0); Mean Corpuscular Hemoglobin 27.4 pg (27.0-31.0); Mean Corpuscular Volume 96.2 fL (78.0-98.0); Ovalocytes SLIGHT = 2-5 cells (100X) (0-1/hpf); Platelet Count 364 thou/uL (130-400); Poikilocytosis SLIGHT = 6-15 cells (100X) (0-5/hpf); Polychromasia SLIGHT = 2-3 cells (100X) (0-2/hpf); RBC Distribution Width 21.6 % (11.5-14.5); Red Blood Cell (RBC) Count 4.08 mill/uL (4.70-6.10); Reflex for Review?? YES; Spherocytes MODERATE= 6-15 cells (100X) (None Seen); White Blood Cell (WBC) Count 8.2 thou/uL (4.8-10.8)
[2020-11-28 05:22] LABS: ALT (SGPT) 18 U/L (8-55); AST (SGOT) 34 U/L (5-34); Albumin 3.1 g/dL (3.4-4.8); Alkaline Phosphatase 175 U/L (40-110); Anion Gap 16 mmol/L (10-20); BUN (Urea Nitrogen) 13 mg/dL (8.4-25.7); Bilirubin, Total 1.3 mg/dL (0.2-1.2); Calc. Creatinine Clearance 107 mL/min (70-130); Calcium 9.7 mg/dL (7.8-10.44); Carbon Dioxide 22 mmol/L (23-31); Chloride 108 mmol/L (98-107); Globulin 4.2 g/dL (2.4-3.5); Glucose 82 mg/dL (83-110); Potassium 5.2 mmol/L (3.5-5.1); Protein, Total 7.3 g/dL (5.8-8.1); Sodium 141 mmol/L (136-145)
[2020-11-28 07:47] LABS: Bilirubin Negative (Negative); Blood, Urine Moderate (Negative); Glucose, Urine (Dipstick) Negative (Negative); Ketone, Urine Negative (Negative); Leukocyte Small (Negative); Nitrite Negative (Negative); Protein, Urine (Dipstick) 30 mg/dL (Neg-Trace); Specific Gravity, Urine 1.025 (1.005-1.030); Urobilinogen 0.2 mg/dL (Less than 2)
[2020-11-28 07:51] LABS: Clarity Hazy (Clear)
[2020-11-28 07:56] LABS: Squamous Epithelial 0-3 HPF (0-3); WBC/HPF 21-50 HPF (0-3)
[2020-11-28 07:57] LABS: Bacteria/HPF 2+ HPF (None Seen)
[2020-11-28] MEDS: Arformoterol 15 MCG/2 ML NEB NEB SCH ×2 (08:12→20:01)
[2020-11-28] MEDS: Aspirin 81 mg Enteric Coated Tablet PO SCH (08:13)
[2020-11-28] MEDS: Metoprolol Tartrate 25 MG TAB PO SCH ×2 (08:13→20:00)
[2020-11-28] MEDS: Ferrous Sulfate 325 MG TAB PO SCH (08:13)
[2020-11-28] MEDS: Rifaximin 550 MG TAB PO SCH ×2 (08:13→20:01)
[2020-11-28] MEDS: Magnesium Oxide 400 MG TAB PO SCH (08:13)
[2020-11-28] MEDS: Budesonide 0.5 MG/2 ML NEB NEB SCH ×2 (08:13→20:01)
[2020-11-28] MEDS: Acetaminophen/Codeine 30-300mg Tablet PO PRN (12:50)
[2020-11-28] MEDS ORDERED: Aspirin 81 mg Enteric Coated Tablet PO SCH (13:15)
[2020-11-28] MEDS ORDERED: Enoxaparin Sodium 40 MG/0.4 ML SYRINGE SC SCH (13:15)
[2020-11-28] MEDS: Cyclobenzaprine 10 MG TAB PO PRN (16:36)
[2020-11-28] MEDS: Mirtazapine 15 MG TAB PO SCH (20:01)
[2020-11-28] MEDS: Ciprofloxacin 500 MG TAB PO SCH (20:01)
[2020-11-28] MEDS: Melatonin 3 MG TAB PO SCH (20:01)
[2020-11-28] MEDS: Atorvastatin Calcium 40 MG TAB PO SCH (20:01)
[2020-11-29] MEDS: Cyclobenzaprine 10 MG TAB PO PRN (04:04)
[2020-11-29] MEDS: Acetaminophen/Codeine 30-300mg Tablet PO PRN ×3 (04:06→23:22)
[2020-11-29] MEDS: Acetaminophen 325 MG TAB PO SCH ×4 (05:05→23:23)
[2020-11-29] MEDS: Ciprofloxacin 500 MG TAB PO SCH ×2 (05:05→19:41)
[2020-11-29] MEDS: Ferrous Sulfate 325 MG TAB PO SCH (08:13)
[2020-11-29] MEDS: Magnesium Oxide 400 MG TAB PO SCH (08:13)
[2020-11-29] MEDS: Enoxaparin Sodium 40 MG/0.4 ML SYRINGE SC SCH (08:14)
[2020-11-29] MEDS: Arformoterol 15 MCG/2 ML NEB NEB SCH ×2 (08:14→19:43)
[2020-11-29] MEDS: Aspirin 81 mg Enteric Coated Tablet PO SCH (08:14)
[2020-11-29] MEDS: Metoprolol Tartrate 25 MG TAB PO SCH ×2 (08:14→20:36)
[2020-11-29] MEDS: Rifaximin 550 MG TAB PO SCH ×2 (08:14→20:36)
[2020-11-29] MEDS: Budesonide 0.5 MG/2 ML NEB NEB SCH ×2 (08:14→20:33)
[2020-11-29] MEDS: Melatonin 3 MG TAB PO SCH (20:36)
[2020-11-29] MEDS: Atorvastatin Calcium 40 MG TAB PO SCH (20:37)
[2020-11-29] MEDS: Mirtazapine 15 MG TAB PO SCH (20:38)
[2020-11-30] MEDS: Acetaminophen 325 MG TAB PO SCH ×3 (05:49→18:38)
[2020-11-30] MEDS: Acetaminophen/Codeine 30-300mg Tablet PO PRN ×2 (05:50→21:35)
[2020-11-30] MEDS: Ciprofloxacin 500 MG TAB PO SCH ×2 (05:50→19:48)
[2020-11-30] MEDS: Ferrous Sulfate 325 MG TAB PO SCH (08:36)
[2020-11-30] MEDS: Arformoterol 15 MCG/2 ML NEB NEB SCH ×2 (09:36→20:30)
[2020-11-30] MEDS: Budesonide 0.5 MG/2 ML NEB NEB SCH ×2 (09:38→20:15)
[2020-11-30] MEDS: Aspirin 81 mg Enteric Coated Tablet PO SCH (09:38)
[2020-11-30] MEDS: Enoxaparin Sodium 40 MG/0.4 ML SYRINGE SC SCH (09:39)
[2020-11-30] MEDS: Magnesium Oxide 400 MG TAB PO SCH (09:40)
[2020-11-30] MEDS: Metoprolol Tartrate 25 MG TAB PO SCH ×2 (09:40→20:25)
[2020-11-30] MEDS: Rifaximin 550 MG TAB PO SCH ×2 (09:40→20:27)
[2020-11-30] MEDS: Melatonin 3 MG TAB PO SCH (20:23)
[2020-11-30] MEDS: Mirtazapine 15 MG TAB PO SCH (20:26)
[2020-11-30] MEDS: Atorvastatin Calcium 40 MG TAB PO SCH (20:27)
[2020-12-01] MEDS: Acetaminophen 325 MG TAB PO SCH ×5 (00:08→23:56)
[2020-12-01] MEDS: Acetaminophen/Codeine 30-300mg Tablet PO PRN ×3 (05:38→20:02)
[2020-12-01 05:40] LABS: Anion Gap 15 mmol/L (10-20); BUN (Urea Nitrogen) 15 mg/dL (8.4-25.7); Calc. Creatinine Clearance 103 mL/min (70-130); Calcium 9.5 mg/dL (7.8-10.44); Carbon Dioxide 22 mmol/L (23-31); Chloride 110 mmol/L (98-107); Glucose 68 mg/dL (83-110); Potassium 4.6 mmol/L (3.5-5.1); Sodium 142 mmol/L (136-145)
[2020-12-01] MEDS: Ciprofloxacin 500 MG TAB PO SCH (05:41)
[2020-12-01] MEDS: Arformoterol 15 MCG/2 ML NEB NEB SCH ×2 (08:08→20:05)
[2020-12-01] MEDS: Enoxaparin Sodium 40 MG/0.4 ML SYRINGE SC SCH (08:08)
[2020-12-01] MEDS: Aspirin 81 mg Enteric Coated Tablet PO SCH (08:09)
[2020-12-01] MEDS: Magnesium Oxide 400 MG TAB PO SCH (08:09)
[2020-12-01] MEDS: Metoprolol Tartrate 25 MG TAB PO SCH ×2 (08:09→20:04)
[2020-12-01] MEDS: Rifaximin 550 MG TAB PO SCH ×2 (08:09→20:03)
[2020-12-01] MEDS: Budesonide 0.5 MG/2 ML NEB NEB SCH ×2 (08:09→20:07)
[2020-12-01] MEDS: Ferrous Sulfate 325 MG TAB PO SCH (08:09)
[2020-12-01] MEDS: Cefdinir 300 MG CAP PO SCH ×2 (09:10→20:04)
[2020-12-01] MEDS: Melatonin 3 MG TAB PO SCH (20:01)
[2020-12-01] MEDS: Atorvastatin Calcium 40 MG TAB PO SCH (20:05)
[2020-12-01] MEDS: Mirtazapine 15 MG TAB PO SCH (20:05)
[2020-12-02] MEDS: Cyclobenzaprine 10 MG TAB PO PRN (02:11)
[2020-12-02] MEDS: Acetaminophen 325 MG TAB PO SCH ×3 (05:55→18:01)
[2020-12-02] MEDS: Acetaminophen/Codeine 30-300mg Tablet PO PRN ×2 (05:55→21:38)
[2020-12-02] MEDS ORDERED: Ibuprofen 600 MG TAB PO SCH (08:30)
[2020-12-02] MEDS: Ferrous Sulfate 325 MG TAB PO SCH (08:46)
[2020-12-02] MEDS: Budesonide 0.5 MG/2 ML NEB NEB SCH ×2 (08:47→21:35)
[2020-12-02] MEDS: Arformoterol 15 MCG/2 ML NEB NEB SCH ×2 (08:48→21:35)
[2020-12-02] MEDS: Cefdinir 300 MG CAP PO SCH ×2 (08:48→21:35)
[2020-12-02] MEDS: Rifaximin 550 MG TAB PO SCH ×2 (08:48→21:36)
[2020-12-02] MEDS: Magnesium Oxide 400 MG TAB PO SCH (08:48)
[2020-12-02] MEDS: Metoprolol Tartrate 25 MG TAB PO SCH ×2 (08:48→21:36)
[2020-12-02] MEDS: Aspirin 81 mg Enteric Coated Tablet PO SCH (08:48)
[2020-12-02] MEDS: Enoxaparin Sodium 40 MG/0.4 ML SYRINGE SC SCH (08:48)
[2020-12-02] MEDS: Melatonin 3 MG TAB PO SCH (21:35)
[2020-12-02] MEDS: Atorvastatin Calcium 40 MG TAB PO SCH (21:36)
[2020-12-02] MEDS: Mirtazapine 15 MG TAB PO SCH (21:42)
[2020-12-03] MEDS: Acetaminophen 325 MG TAB PO SCH ×4 (00:49→17:36)
[2020-12-03 01:54] LABS: SARS-CoV-2 PCR by NAA Not Detected (NotDetected)
[2020-12-03] MEDS: Ibuprofen 600 MG TAB PO SCH (06:09)
[2020-12-03] MEDS: Ferrous Sulfate 325 MG TAB PO SCH (09:25)
[2020-12-03] MEDS: Arformoterol 15 MCG/2 ML NEB NEB SCH ×2 (09:25→20:32)
[2020-12-03] MEDS: Aspirin 81 mg Enteric Coated Tablet PO SCH (09:26)
[2020-12-03] MEDS: Rifaximin 550 MG TAB PO SCH ×2 (09:26→20:26)
[2020-12-03] MEDS: Magnesium Oxide 400 MG TAB PO SCH (09:27)
[2020-12-03] MEDS: Budesonide 0.5 MG/2 ML NEB NEB SCH ×2 (09:27→20:26)
[2020-12-03] MEDS: Metoprolol Tartrate 25 MG TAB PO SCH ×2 (09:27→20:31)
[2020-12-03] MEDS: Cefdinir 300 MG CAP PO SCH ×2 (09:27→20:25)
[2020-12-03] MEDS: Melatonin 3 MG TAB PO SCH (20:23)
[2020-12-03] MEDS: Acetaminophen/Codeine 30-300mg Tablet PO PRN (20:24)
[2020-12-03] MEDS: Mirtazapine 15 MG TAB PO SCH (20:25)
[2020-12-03] MEDS: Atorvastatin Calcium 40 MG TAB PO SCH (20:26)
[2020-12-04] MEDS: Acetaminophen 325 MG TAB PO SCH ×5 (01:28→23:40)
[2020-12-04] MEDS: Cyclobenzaprine 10 MG TAB PO PRN (02:13)
[2020-12-04] MEDS: Acetaminophen/Codeine 30-300mg Tablet PO PRN (06:19)
[2020-12-04] MEDS: Ibuprofen 600 MG TAB PO SCH (06:21)
[2020-12-04] MEDS: Magnesium Oxide 400 MG TAB PO SCH (08:15)
[2020-12-04] MEDS: Rifaximin 550 MG TAB PO SCH ×2 (08:15→21:23)
[2020-12-04] MEDS: Cefdinir 300 MG CAP PO SCH ×2 (08:15→21:24)
[2020-12-04] MEDS: Ferrous Sulfate 325 MG TAB PO SCH (08:15)
[2020-12-04] MEDS: Aspirin 81 mg Enteric Coated Tablet PO SCH (08:15)
[2020-12-04] MEDS: Arformoterol 15 MCG/2 ML NEB NEB SCH ×2 (08:16→21:23)
[2020-12-04] MEDS: Budesonide 0.5 MG/2 ML NEB NEB SCH ×2 (08:16→21:24)
[2020-12-04] MEDS: Metoprolol Tartrate 25 MG TAB PO SCH ×2 (08:16→21:23)
[2020-12-04] MEDS: Atorvastatin Calcium 40 MG TAB PO SCH (21:23)
[2020-12-04] MEDS: Melatonin 3 MG TAB PO SCH (21:23)
[2020-12-04] MEDS: Mirtazapine 15 MG TAB PO SCH (21:24)
[2020-12-05] MEDS: Ibuprofen 600 MG TAB PO SCH (05:57)
[2020-12-05] MEDS: Acetaminophen 325 MG TAB PO SCH ×3 (05:57→17:42)
[2020-12-05] MEDS: Cefdinir 300 MG CAP PO SCH ×2 (08:17→20:40)
[2020-12-05] MEDS: Budesonide 0.5 MG/2 ML NEB NEB SCH ×2 (08:17→20:42)
[2020-12-05] MEDS: Ferrous Sulfate 325 MG TAB PO SCH (08:17)
[2020-12-05] MEDS: Arformoterol 15 MCG/2 ML NEB NEB SCH ×2 (08:17→20:42)
[2020-12-05] MEDS: Aspirin 81 mg Enteric Coated Tablet PO SCH (08:17)
[2020-12-05] MEDS: Metoprolol Tartrate 25 MG TAB PO SCH ×2 (08:17→20:40)
[2020-12-05] MEDS: Magnesium Oxide 400 MG TAB PO SCH (08:17)
[2020-12-05] MEDS: Rifaximin 550 MG TAB PO SCH ×2 (08:17→20:39)
[2020-12-05] MEDS: Melatonin 3 MG TAB PO SCH (20:40)
[2020-12-05] MEDS: Mirtazapine 15 MG TAB PO SCH (20:41)
[2020-12-05] MEDS: Atorvastatin Calcium 40 MG TAB PO SCH (20:41)
[2020-12-06] MEDS: Acetaminophen 325 MG TAB PO SCH ×5 (06:05→23:20)
[2020-12-06] MEDS: Ibuprofen 600 MG TAB PO SCH ×3 (06:05→08:30)
[2020-12-06] MEDS: Calcium Carbonate 500 MG ChewTAB PO PRN (08:20)
[2020-12-06] MEDS: Aspirin 81 mg Enteric Coated Tablet PO SCH (08:21)
[2020-12-06] MEDS: Cefdinir 300 MG CAP PO SCH ×2 (08:21→22:29)
[2020-12-06] MEDS: Ferrous Sulfate 325 MG TAB PO SCH (08:21)
[2020-12-06] MEDS: Rifaximin 550 MG TAB PO SCH ×2 (08:21→22:30)
[2020-12-06] MEDS: Metoprolol Tartrate 25 MG TAB PO SCH ×2 (08:22→22:29)
[2020-12-06] MEDS: Arformoterol 15 MCG/2 ML NEB NEB SCH ×2 (08:22→22:32)
[2020-12-06] MEDS: Budesonide 0.5 MG/2 ML NEB NEB SCH ×2 (08:22→22:30)
[2020-12-06] MEDS: Magnesium Oxide 400 MG TAB PO SCH (08:22)
[2020-12-06] MEDS: Mirtazapine 15 MG TAB PO SCH (22:29)
[2020-12-06] MEDS: Melatonin 3 MG TAB PO SCH (22:29)
[2020-12-06] MEDS: Atorvastatin Calcium 40 MG TAB PO SCH (22:30)
[2020-12-07] MEDS: Acetaminophen 325 MG TAB PO SCH ×3 (06:16→17:22)
[2020-12-07] MEDS: Ibuprofen 600 MG TAB PO SCH (06:50)
[2020-12-07] MEDS: Metoprolol Tartrate 25 MG TAB PO SCH ×2 (08:13→21:21)
[2020-12-07] MEDS: Ferrous Sulfate 325 MG TAB PO SCH (08:13)
[2020-12-07] MEDS: Magnesium Oxide 400 MG TAB PO SCH (08:13)
[2020-12-07] MEDS: Aspirin 81 mg Enteric Coated Tablet PO SCH (08:13)
[2020-12-07] MEDS: Budesonide 0.5 MG/2 ML NEB NEB SCH ×2 (08:13→21:20)
[2020-12-07] MEDS: Rifaximin 550 MG TAB PO SCH ×2 (08:13→21:21)
[2020-12-07] MEDS: Cefdinir 300 MG CAP PO SCH ×2 (08:13→21:21)
[2020-12-07] MEDS: Arformoterol 15 MCG/2 ML NEB NEB SCH ×2 (08:13→21:17)
[2020-12-07] MEDS: Melatonin 3 MG TAB PO SCH (21:20)
[2020-12-07] MEDS: Atorvastatin Calcium 40 MG TAB PO SCH (21:20)
[2020-12-07] MEDS: Mirtazapine 15 MG TAB PO SCH (21:21)
[2020-12-08] MEDS: Acetaminophen 325 MG TAB PO SCH ×4 (00:18→18:14)
[2020-12-08] MEDS: Ibuprofen 600 MG TAB PO SCH (05:24)
[2020-12-08] MEDS: Ferrous Sulfate 325 MG TAB PO SCH (08:16)
[2020-12-08] MEDS: Budesonide 0.5 MG/2 ML NEB NEB SCH ×2 (08:17→20:24)
[2020-12-08] MEDS: Arformoterol 15 MCG/2 ML NEB NEB SCH ×2 (08:19→20:24)
[2020-12-08] MEDS: Aspirin 81 mg Enteric Coated Tablet PO SCH (08:20)
[2020-12-08] MEDS: Cefdinir 300 MG CAP PO SCH (08:21)
[2020-12-08] MEDS: Metoprolol Tartrate 25 MG TAB PO SCH ×2 (08:21→20:25)
[2020-12-08] MEDS: Magnesium Oxide 400 MG TAB PO SCH (08:21)
[2020-12-08] MEDS: Rifaximin 550 MG TAB PO SCH ×2 (08:22→20:29)
[2020-12-08 12:52] VITALS: BMI 31.7
[2020-12-08] MEDS: Acetaminophen/Codeine 30-300mg Tablet PO PRN (14:58)
[2020-12-08] MEDS: Atorvastatin Calcium 40 MG TAB PO SCH (20:24)
[2020-12-08] MEDS: Melatonin 3 MG TAB PO SCH (20:25)
[2020-12-08] MEDS: Mirtazapine 15 MG TAB PO SCH (20:26)
[2020-12-09] MEDS: Acetaminophen 325 MG TAB PO SCH ×5 (00:15→17:35)
[2020-12-09] MEDS: Ibuprofen 600 MG TAB PO SCH ×2 (05:40→06:23)
[2020-12-09] MEDS: Metoprolol Tartrate 25 MG TAB PO SCH ×2 (08:18→21:59)
[2020-12-09] MEDS: Arformoterol 15 MCG/2 ML NEB NEB SCH ×2 (08:18→21:59)
[2020-12-09] MEDS: Budesonide 0.5 MG/2 ML NEB NEB SCH ×2 (08:18→22:00)
[2020-12-09] MEDS: Magnesium Oxide 400 MG TAB PO SCH (08:18)
[2020-12-09] MEDS: Aspirin 81 mg Enteric Coated Tablet PO SCH (08:18)
[2020-12-09] MEDS: Ferrous Sulfate 325 MG TAB PO SCH (08:18)
[2020-12-09] MEDS: Rifaximin 550 MG TAB PO SCH ×2 (08:18→21:59)
[2020-12-09] MEDS: Melatonin 3 MG TAB PO SCH (21:59)
[2020-12-09] MEDS: Atorvastatin Calcium 40 MG TAB PO SCH (21:59)
[2020-12-09] MEDS: Mirtazapine 15 MG TAB PO SCH (21:59)
[2020-12-10] MEDS: Acetaminophen 325 MG TAB PO SCH ×4 (00:58→17:37)
[2020-12-10] MEDS: Ibuprofen 600 MG TAB PO SCH (05:12)
[2020-12-10] MEDS: Magnesium Oxide 400 MG TAB PO SCH (08:53)
[2020-12-10] MEDS: Aspirin 81 mg Enteric Coated Tablet PO SCH (08:54)
[2020-12-10] MEDS: Budesonide 0.5 MG/2 ML NEB NEB SCH ×2 (08:54→21:18)
[2020-12-10] MEDS: Metoprolol Tartrate 25 MG TAB PO SCH ×2 (08:54→21:11)
[2020-12-10] MEDS: Arformoterol 15 MCG/2 ML NEB NEB SCH ×2 (08:54→21:17)
[2020-12-10] MEDS: Rifaximin 550 MG TAB PO SCH ×2 (08:54→21:10)
[2020-12-10] MEDS: Ferrous Sulfate 325 MG TAB PO SCH (08:54)
[2020-12-10] MEDS: Atorvastatin Calcium 40 MG TAB PO SCH (21:10)
[2020-12-10] MEDS: Melatonin 3 MG TAB PO SCH (21:11)
[2020-12-10] MEDS: Mirtazapine 15 MG TAB PO SCH (21:11)
[2020-12-10] MEDS: Cyclobenzaprine 10 MG TAB PO PRN (21:13)
[2020-12-10] MEDS: Acetaminophen/Codeine 30-300mg Tablet PO PRN (21:13)
[2020-12-11] MEDS: Acetaminophen 325 MG TAB PO SCH ×4 (00:23→18:28)
[2020-12-11 00:43] LABS: SARS-CoV-2 PCR by NAA Not Detected (NotDetected)
[2020-12-11] MEDS: Ibuprofen 600 MG TAB PO SCH (05:50)
[2020-12-11] MEDS: Aspirin 81 mg Enteric Coated Tablet PO SCH (08:34)
[2020-12-11] MEDS: Metoprolol Tartrate 25 MG TAB PO SCH ×2 (08:34→20:26)
[2020-12-11] MEDS: Budesonide 0.5 MG/2 ML NEB NEB SCH ×2 (08:35→20:22)
[2020-12-11] MEDS: Ferrous Sulfate 325 MG TAB PO SCH (08:35)
[2020-12-11] MEDS: Magnesium Oxide 400 MG TAB PO SCH (08:35)
[2020-12-11] MEDS: Arformoterol 15 MCG/2 ML NEB NEB SCH ×2 (08:35→20:28)
[2020-12-11] MEDS: Rifaximin 550 MG TAB PO SCH ×2 (08:35→20:27)
[2020-12-11 11:25] LABS: ALT (SGPT) 17 U/L (8-55); AST (SGOT) 32 U/L (5-34); Albumin 2.6 g/dL (3.4-4.8); Alkaline Phosphatase 175 U/L (40-110); Anion Gap 10 mmol/L (10-20); BUN (Urea Nitrogen) 15 mg/dL (8.4-25.7); Bilirubin, Total 1.1 mg/dL (0.2-1.2); Calc. Creatinine Clearance 84 mL/min (70-130); Carbon Dioxide 26 mmol/L (23-31); Chloride 107 mmol/L (98-107); Globulin 3.5 g/dL (2.4-3.5); Glucose 87 mg/dL (83-110); Potassium 4.7 mmol/L (3.5-5.1); Protein, Total 6.1 g/dL (5.8-8.1); Sodium 138 mmol/L (136-145)
[2020-12-11 11:52] LABS: #Basophils 0.1 thou/uL (0.0-0.2); #Eosinphils 0.2 thou/uL (0.0-0.7); #Lymphocytes 1.2 thou/uL (1.20-3.40); #Monocytes 0.7 thou/uL (0.11-0.59); #Neutrophils 3.1 thou/uL (1.40-6.50); %Basophils 1.5 % (0.0-1.0); %Eosinophils 3.4 % (0.0-10.0); %Lymphocytes 22.1 % (21.0-51.0); %Monocytes 12.6 % (0.0-10.0); %Neutrophils 60.4 % (42.0-75.0); Anisocytosis SLIGHT = 6-15 cells (100X) (0-5/hpf); Hemoglobin 11.4 g/dL (14.0-18.0); Hypochromia SLIGHT = 6-15 cells (100X) (0-5/hpf); MDiff Complete? YES; Mean Corpuscular HGB CONC 28.8 g/dL (32.0-36.0); Mean Corpuscular Hemoglobin 27.9 pg (27.0-31.0); Mean Corpuscular Volume 96.9 fL (78.0-98.0); Mean Platelet Volume 7.2 fL (7.4-10.4); Platelet Count 191 thou/uL (130-400); Platelet Morphology Comment Appears Adequate; RBC Distribution Width 21.9 % (11.5-14.5); Red Blood Cell (RBC) Count 4.06 mill/uL (4.70-6.10); White Blood Cell (WBC) Count 5.2 thou/uL (4.8-10.8)
[2020-12-11] MEDS: Acetaminophen/Codeine 30-300mg Tablet PO PRN (20:24)
[2020-12-11] MEDS: Atorvastatin Calcium 40 MG TAB PO SCH (20:26)
[2020-12-11] MEDS: Mirtazapine 15 MG TAB PO SCH (20:27)
[2020-12-11] MEDS: Melatonin 3 MG TAB PO SCH (20:27)
[2020-12-12] MEDS: Acetaminophen 325 MG TAB PO SCH ×6 (00:48→23:41)
[2020-12-12] MEDS: Ibuprofen 600 MG TAB PO SCH (05:30)
[2020-12-12] MEDS: Magnesium Oxide 400 MG TAB PO SCH (08:09)
[2020-12-12] MEDS: Metoprolol Tartrate 25 MG TAB PO SCH ×2 (08:09→21:00)
[2020-12-12] MEDS: Ferrous Sulfate 325 MG TAB PO SCH (08:09)
[2020-12-12] MEDS: Aspirin 81 mg Enteric Coated Tablet PO SCH (08:09)
[2020-12-12] MEDS: Budesonide 0.5 MG/2 ML NEB NEB SCH ×2 (08:10→21:03)
[2020-12-12] MEDS: Rifaximin 550 MG TAB PO SCH ×2 (08:10→20:56)
[2020-12-12] MEDS: Arformoterol 15 MCG/2 ML NEB NEB SCH ×2 (08:10→21:02)
[2020-12-12] MEDS ORDERED: Furosemide 20 MG TAB PO SCH (16:45)
[2020-12-12] MEDS: Melatonin 3 MG TAB PO SCH (20:57)
[2020-12-12] MEDS: Mirtazapine 15 MG TAB PO SCH (21:00)
[2020-12-12] MEDS: Atorvastatin Calcium 40 MG TAB PO SCH (21:00)
[2020-12-12] MEDS: Acetaminophen/Codeine 30-300mg Tablet PO PRN (23:43)
[2020-12-13] MEDS: Ibuprofen 600 MG TAB PO SCH (05:08)
[2020-12-13] MEDS: Acetaminophen 325 MG TAB PO SCH ×3 (05:09→17:17)
[2020-12-13] MEDS: Ferrous Sulfate 325 MG TAB PO SCH (09:23)
[2020-12-13] MEDS: Arformoterol 15 MCG/2 ML NEB NEB SCH ×2 (09:23→20:48)
[2020-12-13] MEDS: Furosemide 20 MG TAB PO SCH (09:24)
[2020-12-13] MEDS: Aspirin 81 mg Enteric Coated Tablet PO SCH (09:24)
[2020-12-13] MEDS: Rifaximin 550 MG TAB PO SCH ×2 (09:24→20:45)
[2020-12-13] MEDS: Metoprolol Tartrate 25 MG TAB PO SCH ×2 (09:24→20:46)
[2020-12-13] MEDS: Magnesium Oxide 400 MG TAB PO SCH (09:24)
[2020-12-13] MEDS: Budesonide 0.5 MG/2 ML NEB NEB SCH ×2 (09:25→20:47)
[2020-12-13] MEDS: Atorvastatin Calcium 40 MG TAB PO SCH (20:45)
[2020-12-13] MEDS: Mirtazapine 15 MG TAB PO SCH (20:46)
[2020-12-13] MEDS: Melatonin 3 MG TAB PO SCH (20:46)
[2020-12-13] MEDS: Acetaminophen/Codeine 30-300mg Tablet PO PRN (22:26)
[2020-12-14] MEDS: Acetaminophen 325 MG TAB PO SCH ×4 (02:07→18:12)
[2020-12-14] MEDS: Ibuprofen 600 MG TAB PO SCH (05:34)
[2020-12-14] MEDS: Arformoterol 15 MCG/2 ML NEB NEB SCH ×2 (08:50→20:25)
[2020-12-14] MEDS: Metoprolol Tartrate 25 MG TAB PO SCH ×2 (08:54→20:26)
[2020-12-14] MEDS: Rifaximin 550 MG TAB PO SCH ×2 (08:54→20:28)
[2020-12-14] MEDS: Aspirin 81 mg Enteric Coated Tablet PO SCH (08:54)
[2020-12-14] MEDS: Furosemide 20 MG TAB PO SCH (08:54)
[2020-12-14] MEDS: Magnesium Oxide 400 MG TAB PO SCH (08:54)
[2020-12-14] MEDS: Budesonide 0.5 MG/2 ML NEB NEB SCH ×2 (08:54→20:25)
[2020-12-14] MEDS: Ferrous Sulfate 325 MG TAB PO SCH (08:55)
[2020-12-14] MEDS: Mirtazapine 15 MG TAB PO SCH (20:26)
[2020-12-14] MEDS: Atorvastatin Calcium 40 MG TAB PO SCH (20:26)
[2020-12-14] MEDS: Melatonin 3 MG TAB PO SCH (20:27)
[2020-12-15] MEDS: Acetaminophen 325 MG TAB PO SCH ×5 (01:06→23:54)
[2020-12-15] MEDS: Calcium Carbonate 500 MG ChewTAB PO PRN (01:08)
[2020-12-15] MEDS: Cyclobenzaprine 10 MG TAB PO PRN (01:18)
[2020-12-15] MEDS: Ibuprofen 600 MG TAB PO SCH (05:13)
[2020-12-15] MEDS: Arformoterol 15 MCG/2 ML NEB NEB SCH ×2 (08:15→20:44)
[2020-12-15] MEDS: Budesonide 0.5 MG/2 ML NEB NEB SCH ×2 (08:15→20:44)
[2020-12-15] MEDS: Magnesium Oxide 400 MG TAB PO SCH (08:16)
[2020-12-15] MEDS: Rifaximin 550 MG TAB PO SCH ×2 (08:16→20:46)
[2020-12-15] MEDS: Furosemide 20 MG TAB PO SCH (08:17)
[2020-12-15] MEDS: Aspirin 81 mg Enteric Coated Tablet PO SCH (08:17)
[2020-12-15] MEDS: Ferrous Sulfate 325 MG TAB PO SCH (08:17)
[2020-12-15] MEDS: Metoprolol Tartrate 25 MG TAB PO SCH ×2 (08:20→20:47)
[2020-12-15] MEDS ORDERED: Furosemide 40 MG TAB PO SCH (16:45)
[2020-12-15] MEDS: Acetaminophen/Codeine 30-300mg Tablet PO PRN (20:45)
[2020-12-15] MEDS: Atorvastatin Calcium 40 MG TAB PO SCH (20:45)
[2020-12-15] MEDS: Mirtazapine 15 MG TAB PO SCH (20:45)
[2020-12-15] MEDS: Melatonin 3 MG TAB PO SCH (20:46)
[2020-12-16] MEDS: Ibuprofen 600 MG TAB PO SCH (06:15)
[2020-12-16] MEDS: Acetaminophen 325 MG TAB PO SCH ×3 (06:15→17:27)
[2020-12-16] MEDS: Arformoterol 15 MCG/2 ML NEB NEB SCH (08:04)
[2020-12-16] MEDS: Budesonide 0.5 MG/2 ML NEB NEB SCH (08:04)
[2020-12-16] MEDS: Aspirin 81 mg Enteric Coated Tablet PO SCH (08:04)
[2020-12-16] MEDS: Rifaximin 550 MG TAB PO SCH (08:04)
[2020-12-16] MEDS: Metoprolol Tartrate 25 MG TAB PO SCH (08:05)
[2020-12-16] MEDS: Ferrous Sulfate 325 MG TAB PO SCH (08:05)
[2020-12-16] MEDS: Magnesium Oxide 400 MG TAB PO SCH (08:05)
[2020-12-16] MEDS: Furosemide 20 MG TAB PO SCH (08:05)
[2020-12-16 19:20] VITALS: BP 133/61; TEMP 98
== END 2020-12-16 21:45 | disposition home health service (06) | DRG 559 ==
LOC: MADMS 13:25
PROVIDERS: ADMIT Family Medicine; ATTEND Family Medicine
DX: S72.141D Displaced intertrochanteric fracture of right femur, subsequent encounter for closed fracture with routine healing (principal); G93.41 Metabolic encephalopathy; Z66 Do not resuscitate; N39.0 Urinary tract infection, site not specified; Z16.29 Resistance to other single specified antibiotic; J90 Pleural effusion, not elsewhere classified; I25.10 Atherosclerotic heart disease of native coronary artery without angina pectoris; I10 Essential (primary) hypertension; K21.9 Gastro-esophageal reflux disease without esophagitis; I48.0 Paroxysmal atrial fibrillation; K74.60 Unspecified cirrhosis of liver; K76.0 Fatty (change of) liver, not elsewhere classified; G47.33 Obstructive sleep apnea (adult) (pediatric); R13.10 Dysphagia, unspecified; W19.XXXD Unspecified fall, subsequent encounter; R53.81 Other malaise; Z20.822 Contact with and (suspected) exposure to COVID-19; M54.5 Low back pain; B96.1 Klebsiella pneumoniae [K. pneumoniae] as the cause of diseases classified elsewhere; Z95.1 Presence of aortocoronary bypass graft; Z79.82 Long term (current) use of aspirin; Z79.899 Other long term (current) drug therapy; Z88.0 Allergy status to penicillin; Z88.8 Allergy status to other drugs, medicaments and biological substances
CPT/HCPCS: 36415; 36416; 71045; 80048; 80053; 81001; 82306; 85025; 85060; 87077; 87086; 87186; J1650; J7626; Q0162; U0003; U0005

== ENCOUNTER 2020-12-17 12:33 | Emergency (ER) | payer MEDICARE ==
[2020-12-17 13:58] LABS: #Basophils 0.1 thou/uL (0.0-0.2); #Eosinphils 0.3 thou/uL (0.0-0.7); #Lymphocytes 1.4 thou/uL (1.20-3.40); #Monocytes 0.9 thou/uL (0.11-0.59); #Neutrophils 3.8 thou/uL (1.40-6.50); %Lymphocytes 21.8 % (21.0-51.0); %Neutrophils 58.1 % (42.0-75.0); Hemoglobin 12.7 g/dL (14.0-18.0); Mean Corpuscular HGB CONC 28.4 g/dL (32.0-36.0); Mean Corpuscular Hemoglobin 27.9 pg (27.0-31.0); Mean Corpuscular Volume 98.1 fL (78.0-98.0); Mean Platelet Volume 7.1 fL (7.4-10.4); Platelet Count 198 thou/uL (130-400); RBC Distribution Width 22.8 % (11.5-14.5); Red Blood Cell (RBC) Count 4.55 mill/uL (4.70-6.10); White Blood Cell (WBC) Count 6.5 thou/uL (4.8-10.8)
[2020-12-17 14:04] LABS: Anisocytosis SLIGHT = 6-15 cells (100X) (0-5/hpf); Poikilocytosis SLIGHT = 6-15 cells (100X) (0-5/hpf)
[2020-12-17 14:05] LABS: Platelet Morphology Comment Appears Adequate
[2020-12-17 14:10] LABS: ALT (SGPT) 20 U/L (8-55); AST (SGOT) 42 U/L (5-34); Albumin 2.7 g/dL (3.4-4.8); Alkaline Phosphatase 184 U/L (40-110); Anion Gap 11 mmol/L (10-20); BUN (Urea Nitrogen) 18 mg/dL (8.4-25.7); Bilirubin, Total 0.8 mg/dL (0.2-1.2); CK (CPK) 46 U/L (30-200); Calc. Creatinine Clearance 0 mL/min (70-130); Calcium 10.3 mg/dL (7.8-10.44); Carbon Dioxide 32 mmol/L (23-31); Chloride 102 mmol/L (98-107); Globulin 3.7 g/dL (2.4-3.5); Glucose 89 mg/dL (83-110); Potassium 3.6 mmol/L (3.5-5.1); Protein, Total 6.4 g/dL (5.8-8.1); Sodium 141 mmol/L (136-145)
[2020-12-17 14:29] LABS: CKMB 3.7 ng/mL (0-6.6)
[2020-12-17 15:52] LABS: Troponin I 0.047 ng/mL (< 0.028)
== END 2020-12-17 17:48 | disposition home or self-care (01) ==
LOC: MADERS 12:33
DX: R06.00 Dyspnea, unspecified (principal); I11.0 Hypertensive heart disease with heart failure; I50.9 Heart failure, unspecified; M19.90 Unspecified osteoarthritis, unspecified site; I48.91 Unspecified atrial fibrillation; G47.30 Sleep apnea, unspecified; K21.9 Gastro-esophageal reflux disease without esophagitis; E78.5 Hyperlipidemia, unspecified; G47.00 Insomnia, unspecified; Z86.73 Personal history of transient ischemic attack (TIA), and cerebral infarction without residual deficits; Z87.891 Personal history of nicotine dependence
CPT/HCPCS: 36415; 71045; 80053; 82550; 82553; 83605; 84484; 85025; 93005; 94760

== ENCOUNTER 2020-12-27 08:48 | Outpatient (CLI) | payer MEDICARE ==
[2020-12-27 09:40] LABS: ALT (SGPT) 18 U/L (8-55); AST (SGOT) 37 U/L (5-34); Albumin 2.6 g/dL (3.4-4.8); Alkaline Phosphatase 194 U/L (40-110); Anion Gap 12 mmol/L (10-20); BUN (Urea Nitrogen) 11 mg/dL (8.4-25.7); Bilirubin, Total 0.4 mg/dL (0.2-1.2); Calc. Creatinine Clearance 0 mL/min (70-130); Calcium 10.2 mg/dL (7.8-10.44); Carbon Dioxide 25 mmol/L (23-31); Chloride 106 mmol/L (98-107); Globulin 2.9 g/dL (2.4-3.5); Glucose 90 mg/dL (83-110); Potassium 3.8 mmol/L (3.5-5.1); Protein, Total 5.5 g/dL (5.8-8.1); Sodium 139 mmol/L (136-145)
[2020-12-27 12:07] LABS: Hemoglobin 12.9 g/dL (14.0-18.0); Mean Corpuscular HGB CONC 27.8 g/dL (32.0-36.0); Mean Corpuscular Hemoglobin 28.1 pg (27.0-31.0); Mean Corpuscular Volume 101.1 fL (78.0-98.0); Mean Platelet Volume 6.5 fL (7.4-10.4); Platelet Count 170 thou/uL (130-400); RBC Distribution Width 22.5 % (11.5-14.5); Red Blood Cell (RBC) Count 4.57 mill/uL (4.70-6.10); White Blood Cell (WBC) Count 5.8 thou/uL (4.8-10.8)
[2020-12-27 12:08] LABS: Anisocytosis SLIGHT = 6-15 cells (100X) (0-5/hpf); Band 1 % (5-11); Eosinophils 1 % (0-10); Lymphocytes 21 % (21-51); MDiff Complete? YES; Monocytes 7 % (0-10); Neutrophil 70 % (42-75); Platelet Morphology Comment Appears Adequate
== END 2020-12-27 08:49 | disposition home or self-care (01) ==
LOC: MADLAB 08:48
PROVIDERS: ATTEND Family Medicine
DX: I10 Essential (primary) hypertension (principal)
CPT/HCPCS: 80053; 85025

== ENCOUNTER 2021-01-28 15:18 | Outpatient (CLI) | payer MEDICARE ==
[2021-01-28 15:47] LABS: #Basophils 0.1 thou/uL (0.0-0.2); #Eosinphils 0.3 thou/uL (0.0-0.7); #Lymphocytes 1.2 thou/uL (1.20-3.40); #Monocytes 0.5 thou/uL (0.11-0.59); #Neutrophils 3.4 thou/uL (1.40-6.50); %Basophils 1.9 % (0.0-1.0); %Eosinophils 5.2 % (0.0-10.0); %Lymphocytes 22.5 % (21.0-51.0); %Monocytes 9.2 % (0.0-10.0); %Neutrophils 61.4 % (42.0-75.0); Hemoglobin 12.9 g/dL (14.0-18.0); Mean Corpuscular HGB CONC 29.3 g/dL (32.0-36.0); Mean Corpuscular Hemoglobin 27.7 pg (27.0-31.0); Mean Corpuscular Volume 94.6 fL (78.0-98.0); Mean Platelet Volume 6.5 fL (7.4-10.4); Platelet Count 200 thou/uL (130-400); RBC Distribution Width 18.8 % (11.5-14.5); Red Blood Cell (RBC) Count 4.65 mill/uL (4.70-6.10); White Blood Cell (WBC) Count 5.5 thou/uL (4.8-10.8)
[2021-01-28 16:01] LABS: ALT (SGPT) 14 U/L (8-55); AST (SGOT) 32 U/L (5-34); Albumin 2.8 g/dL (3.4-4.8); Alkaline Phosphatase 140 U/L (40-110); Anion Gap 15 mmol/L (10-20); BUN (Urea Nitrogen) 18 mg/dL (8.4-25.7); Bilirubin, Total 0.6 mg/dL (0.2-1.2); Calc. Creatinine Clearance 0 mL/min (70-130); Calcium 10.3 mg/dL (7.8-10.44); Carbon Dioxide 22 mmol/L (23-31); Chloride 107 mmol/L (98-107); Globulin 3.6 g/dL (2.4-3.5); Glucose 104 mg/dL (83-110); Potassium 3.6 mmol/L (3.5-5.1); Protein, Total 6.4 g/dL (5.8-8.1); Sodium 140 mmol/L (136-145)
== END 2021-01-28 15:19 | disposition home or self-care (01) ==
LOC: MADLAB 15:18
PROVIDERS: ATTEND Family Medicine
DX: I10 Essential (primary) hypertension (principal); S72.141D Displaced intertrochanteric fracture of right femur, subsequent encounter for closed fracture with routine healing
CPT/HCPCS: 80053; 85025

== ENCOUNTER 2021-03-30 17:46 | Emergency (ER) | payer MEDICARE ==
[2021-03-30 18:36] LABS: #Basophils 0.1 thou/uL (0.0-0.2); #Eosinphils 0.3 thou/uL (0.0-0.7); #Lymphocytes 1.5 thou/uL (1.20-3.40); #Monocytes 0.8 thou/uL (0.11-0.59); #Neutrophils 3.9 thou/uL (1.40-6.50); %Basophils 1.1 % (0.0-1.0); %Eosinophils 3.9 % (0.0-10.0); %Lymphocytes 23.3 % (21.0-51.0); %Monocytes 11.5 % (0.0-10.0); %Neutrophils 60.2 % (42.0-75.0); Hemoglobin 13.6 g/dL (14.0-18.0); Mean Corpuscular HGB CONC 30.5 g/dL (32.0-36.0); Mean Corpuscular Hemoglobin 28.7 pg (27.0-31.0); Mean Corpuscular Volume 94.1 fL (78.0-98.0); Mean Platelet Volume 5.4 fL (7.4-10.4); Platelet Count 210 thou/uL (130-400); Red Blood Cell (RBC) Count 4.75 mill/uL (4.70-6.10); White Blood Cell (WBC) Count 6.5 thou/uL (4.8-10.8)
[2021-03-30] MEDS ORDERED: Sodium Chloride 0.9% 1,000 ML ONE (18:50)
[2021-03-30 18:52] LABS: ALT (SGPT) 14 U/L (8-55); AST (SGOT) 28 U/L (5-34); Albumin 3.5 g/dL (3.4-4.8); Alkaline Phosphatase 109 U/L (40-110); Anion Gap 11 mmol/L (10-20); BUN (Urea Nitrogen) 26 mg/dL (8.4-25.7); Bilirubin, Total 0.7 mg/dL (0.2-1.2); Calc. Creatinine Clearance 0 mL/min (70-130); Carbon Dioxide 25 mmol/L (23-31); Chloride 109 mmol/L (98-107); Globulin 3.6 g/dL (2.4-3.5); Glucose 84 mg/dL (83-110); Magnesium 2.1 mg/dL (1.6-2.6); Potassium 3.9 mmol/L (3.5-5.1); Protein, Total 7.1 g/dL (5.8-8.1); Sodium 141 mmol/L (136-145)
[2021-03-30 18:56] LABS: Phosphorus 2.8 mg/dL (2.3-4.7)
[2021-03-30 19:13] LABS: Calcium 12.2 mg/dL (7.8-10.44)
[2021-03-30] MEDS ORDERED: Meropenem 1 GM VIAL ONE (19:28)
[2021-03-30 19:48] LABS: CKMB 2.7 ng/mL (0-6.6)
== END 2021-03-30 22:32 | disposition short-term general hospital (02) ==
LOC: MADERS 17:46
DX: E83.52 Hypercalcemia (principal); G93.40 Encephalopathy, unspecified; N39.0 Urinary tract infection, site not specified; R77.8 Other specified abnormalities of plasma proteins; I11.0 Hypertensive heart disease with heart failure; I50.9 Heart failure, unspecified; K21.9 Gastro-esophageal reflux disease without esophagitis; E78.5 Hyperlipidemia, unspecified; I48.91 Unspecified atrial fibrillation; M19.90 Unspecified osteoarthritis, unspecified site; Z79.82 Long term (current) use of aspirin; G47.30 Sleep apnea, unspecified; Z87.891 Personal history of nicotine dependence
CPT/HCPCS: 70450; 71045; 82553; 83690; 83735; 83880; 84100; 84443; 84484; 87040; 87086; 93005; 94760; 96365; 96366; J2185; J7050

== ENCOUNTER 2021-04-10 15:22 | Inpatient (IN) | payer MEDICARE ==
[2021-04-10] MEDS: Melatonin 3 MG TAB PO SCH (20:05)
[2021-04-10] MEDS: Arformoterol 15 MCG/2 ML NEB NEB SCH (20:06)
[2021-04-10] MEDS: Budesonide 0.5 MG/2 ML NEB NEB SCH (20:06)
[2021-04-10] MEDS: Aspirin 81 mg Enteric Coated Tablet PO SCH (20:07)
[2021-04-10] MEDS: Mirtazapine 15 MG TAB PO SCH (20:07)
[2021-04-10] MEDS: Metoprolol Tartrate 25 MG TAB PO SCH (20:07)
[2021-04-10] MEDS: Rosuvastatin 10 MG TAB PO SCH (20:07)
[2021-04-10] MEDS: Rifaximin 550 MG TAB PO SCH (20:07)
[2021-04-10] MEDS: Acetaminophen 500 MG TAB PO PRN (21:03)
[2021-04-11] MEDS: Arformoterol 15 MCG/2 ML NEB NEB SCH ×2 (08:20→20:05)
[2021-04-11] MEDS: Cyanocobalamin (Vitamin B-12) 1,000 MCG TAB PO SCH (08:20)
[2021-04-11] MEDS: Fluconazole 100 MG TAB PO SCH (08:21)
[2021-04-11] MEDS: Spironolactone 25 MG TAB PO SCH ×2 (08:21→08:22)
[2021-04-11] MEDS: Budesonide 0.5 MG/2 ML NEB NEB SCH ×2 (08:21→20:05)
[2021-04-11] MEDS: Magnesium Oxide 400 MG TAB PO SCH (08:21)
[2021-04-11] MEDS: Rifaximin 550 MG TAB PO SCH ×2 (08:22→20:05)
[2021-04-11] MEDS: Metoprolol Tartrate 25 MG TAB PO SCH ×2 (08:23→20:06)
[2021-04-11 12:10] LABS: ALT (SGPT) 72 U/L (8-55); AST (SGOT) 102 U/L (5-34); Albumin 2.7 g/dL (3.4-4.8); Alkaline Phosphatase 129 U/L (40-110); Anion Gap 12 mmol/L (10-20); BUN (Urea Nitrogen) 13 mg/dL (8.4-25.7); Bilirubin, Total 0.7 mg/dL (0.2-1.2); Calc. Creatinine Clearance 91 mL/min (70-130); Calcium 10.9 mg/dL (7.8-10.44); Carbon Dioxide 19 mmol/L (23-31); Chloride 115 mmol/L (98-107); Globulin 3.1 g/dL (2.4-3.5); Glucose 103 mg/dL (83-110); Potassium 3.2 mmol/L (3.5-5.1); Protein, Total 5.8 g/dL (5.8-8.1); Sodium 143 mmol/L (136-145)
[2021-04-11] MEDS: Melatonin 3 MG TAB PO SCH (20:05)
[2021-04-11] MEDS: Rosuvastatin 10 MG TAB PO SCH (20:05)
[2021-04-11] MEDS: Aspirin 81 mg Enteric Coated Tablet PO SCH (20:06)
[2021-04-11] MEDS: Mirtazapine 15 MG TAB PO SCH (20:06)
[2021-04-11] MEDS: Acetaminophen 500 MG TAB PO PRN (20:10)
[2021-04-12 05:35] LABS: #Basophils 0.1 thou/uL (0.0-0.2); #Eosinphils 0.9 thou/uL (0.0-0.7); #Lymphocytes 1.3 thou/uL (1.20-3.40); #Monocytes 0.5 thou/uL (0.11-0.59); #Neutrophils 2.7 thou/uL (1.40-6.50); %Basophils 1.6 % (0.0-1.0); %Lymphocytes 24.2 % (21.0-51.0); %Monocytes 8.4 % (0.0-10.0); %Neutrophils 49.8 % (42.0-75.0); Hemoglobin 12.7 g/dL (14.0-18.0); Mean Corpuscular HGB CONC 31.3 g/dL (32.0-36.0); Mean Corpuscular Hemoglobin 29.3 pg (27.0-31.0); Mean Corpuscular Volume 93.7 fL (78.0-98.0); Mean Platelet Volume 7.5 fL (7.4-10.4); Platelet Count 173 thou/uL (130-400); RBC Distribution Width 15.3 % (11.5-14.5); Red Blood Cell (RBC) Count 4.34 mill/uL (4.70-6.10); White Blood Cell (WBC) Count 5.3 thou/uL (4.8-10.8)
[2021-04-12] MEDS: Arformoterol 15 MCG/2 ML NEB NEB SCH ×2 (08:18→20:05)
[2021-04-12] MEDS: Fluconazole 100 MG TAB PO SCH (08:18)
[2021-04-12] MEDS: Cyanocobalamin (Vitamin B-12) 1,000 MCG TAB PO SCH (08:19)
[2021-04-12] MEDS: Budesonide 0.5 MG/2 ML NEB NEB SCH ×2 (08:19→21:10)
[2021-04-12] MEDS: Rifaximin 550 MG TAB PO SCH ×2 (08:19→20:04)
[2021-04-12] MEDS: Magnesium Oxide 400 MG TAB PO SCH (08:19)
[2021-04-12] MEDS: Metoprolol Tartrate 25 MG TAB PO SCH ×2 (08:20→20:02)
[2021-04-12] MEDS: Melatonin 3 MG TAB PO SCH (20:02)
[2021-04-12] MEDS: Aspirin 81 mg Enteric Coated Tablet PO SCH (20:02)
[2021-04-12] MEDS: Mirtazapine 15 MG TAB PO SCH (20:03)
[2021-04-12] MEDS: Acetaminophen 500 MG TAB PO PRN (21:10)
[2021-04-13] MEDS: Fluconazole 100 MG TAB PO SCH (07:58)
[2021-04-13] MEDS: Arformoterol 15 MCG/2 ML NEB NEB SCH ×2 (07:58→20:38)
[2021-04-13] MEDS: Budesonide 0.5 MG/2 ML NEB NEB SCH ×2 (07:58→20:38)
[2021-04-13] MEDS: Magnesium Oxide 400 MG TAB PO SCH (07:59)
[2021-04-13] MEDS: Metoprolol Tartrate 25 MG TAB PO SCH ×2 (07:59→20:37)
[2021-04-13] MEDS: Rifaximin 550 MG TAB PO SCH ×2 (07:59→20:38)
[2021-04-13] MEDS: Spironolactone 25 MG TAB PO SCH (08:00)
[2021-04-13] MEDS: Cyanocobalamin (Vitamin B-12) 1,000 MCG TAB PO SCH (08:06)
[2021-04-13] MEDS: Acetaminophen 500 MG TAB PO PRN (20:36)
[2021-04-13] MEDS: Aspirin 81 mg Enteric Coated Tablet PO SCH (20:38)
[2021-04-13] MEDS: Melatonin 3 MG TAB PO SCH (20:38)
[2021-04-13] MEDS: Mirtazapine 15 MG TAB PO SCH (20:38)
[2021-04-14] MEDS: Rifaximin 550 MG TAB PO SCH ×2 (08:04→20:02)
[2021-04-14] MEDS: Arformoterol 15 MCG/2 ML NEB NEB SCH ×2 (08:04→20:01)
[2021-04-14] MEDS: Budesonide 0.5 MG/2 ML NEB NEB SCH ×2 (08:04→20:01)
[2021-04-14] MEDS: Magnesium Oxide 400 MG TAB PO SCH (08:05)
[2021-04-14] MEDS: Metoprolol Tartrate 25 MG TAB PO SCH ×2 (08:05→20:02)
[2021-04-14] MEDS: Fluconazole 100 MG TAB PO SCH (08:05)
[2021-04-14] MEDS: Cyanocobalamin (Vitamin B-12) 1,000 MCG TAB PO SCH (08:06)
[2021-04-14] MEDS: Spironolactone 25 MG TAB PO SCH (08:06)
[2021-04-14] MEDS: Acetaminophen/Codeine 30-300mg Tablet PO PRN (20:00)
[2021-04-14] MEDS: Melatonin 3 MG TAB PO SCH (20:01)
[2021-04-14] MEDS: Mirtazapine 15 MG TAB PO SCH (20:02)
[2021-04-14] MEDS: Aspirin 81 mg Enteric Coated Tablet PO SCH (20:02)
[2021-04-15] MEDS: Arformoterol 15 MCG/2 ML NEB NEB SCH ×2 (08:08→20:28)
[2021-04-15] MEDS: Budesonide 0.5 MG/2 ML NEB NEB SCH ×2 (08:08→20:28)
[2021-04-15] MEDS: Fluconazole 100 MG TAB PO SCH (08:08)
[2021-04-15] MEDS: Metoprolol Tartrate 25 MG TAB PO SCH ×2 (08:08→20:27)
[2021-04-15] MEDS: Spironolactone 25 MG TAB PO SCH (08:08)
[2021-04-15] MEDS: Rifaximin 550 MG TAB PO SCH ×2 (08:09→20:27)
[2021-04-15] MEDS: Cyanocobalamin (Vitamin B-12) 1,000 MCG TAB PO SCH (08:09)
[2021-04-15] MEDS: Magnesium Oxide 400 MG TAB PO SCH (08:09)
[2021-04-15] MEDS: Acetaminophen/Codeine 30-300mg Tablet PO PRN ×2 (08:11→20:27)
[2021-04-15 12:50] LABS: SARS-CoV-2 PCR by NAA Not Detected (NotDetected)
[2021-04-15] MEDS: Melatonin 3 MG TAB PO SCH (20:27)
[2021-04-15] MEDS: Mirtazapine 15 MG TAB PO SCH (20:27)
[2021-04-15] MEDS: Aspirin 81 mg Enteric Coated Tablet PO SCH (20:27)
[2021-04-16 05:47] LABS: ALT (SGPT) 60 U/L (8-55); AST (SGOT) 43 U/L (5-34); Albumin 2.8 g/dL (3.4-4.8); Alkaline Phosphatase 114 U/L (40-110); Anion Gap 13 mmol/L (10-20); BUN (Urea Nitrogen) 10 mg/dL (8.4-25.7); Bilirubin, Total 0.7 mg/dL (0.2-1.2); Calc. Creatinine Clearance 93 mL/min (70-130); Calcium 10.6 mg/dL (7.8-10.44); Carbon Dioxide 23 mmol/L (23-31); Chloride 111 mmol/L (98-107); Globulin 3.1 g/dL (2.4-3.5); Glucose 77 mg/dL (83-110); Potassium 3.5 mmol/L (3.5-5.1); Protein, Total 5.9 g/dL (5.8-8.1); Sodium 143 mmol/L (136-145)
[2021-04-16] MEDS: Rifaximin 550 MG TAB PO SCH ×2 (08:11→20:44)
[2021-04-16] MEDS: Fluconazole 100 MG TAB PO SCH (08:11)
[2021-04-16] MEDS: Magnesium Oxide 400 MG TAB PO SCH (08:11)
[2021-04-16] MEDS: Spironolactone 25 MG TAB PO SCH (08:11)
[2021-04-16] MEDS: Metoprolol Tartrate 25 MG TAB PO SCH ×2 (08:12→20:15)
[2021-04-16] MEDS: Cyanocobalamin (Vitamin B-12) 1,000 MCG TAB PO SCH (08:12)
[2021-04-16] MEDS: Budesonide 0.5 MG/2 ML NEB NEB SCH ×2 (08:15→20:44)
[2021-04-16] MEDS: Arformoterol 15 MCG/2 ML NEB NEB SCH ×2 (08:16→20:13)
[2021-04-16] MEDS: Acetaminophen/Codeine 30-300mg Tablet PO PRN ×2 (08:20→20:23)
[2021-04-16] MEDS: Aspirin 81 mg Enteric Coated Tablet PO SCH (20:14)
[2021-04-16] MEDS: Melatonin 3 MG TAB PO SCH (20:16)
[2021-04-16] MEDS: Mirtazapine 15 MG TAB PO SCH (20:44)
[2021-04-17] MEDS: Acetaminophen/Codeine 30-300mg Tablet PO PRN ×2 (08:49→20:24)
[2021-04-17] MEDS: Magnesium Oxide 400 MG TAB PO SCH (08:50)
[2021-04-17] MEDS: Rifaximin 550 MG TAB PO SCH ×2 (08:50→20:25)
[2021-04-17] MEDS: Metoprolol Tartrate 25 MG TAB PO SCH ×2 (08:51→20:25)
[2021-04-17] MEDS: Cyanocobalamin (Vitamin B-12) 1,000 MCG TAB PO SCH (08:51)
[2021-04-17] MEDS: Spironolactone 25 MG TAB PO SCH (08:51)
[2021-04-17] MEDS: Fluconazole 100 MG TAB PO SCH (08:51)
[2021-04-17] MEDS: Budesonide 0.5 MG/2 ML NEB NEB SCH ×2 (08:51→20:25)
[2021-04-17] MEDS: Arformoterol 15 MCG/2 ML NEB NEB SCH ×2 (08:52→20:25)
[2021-04-17] MEDS: Aspirin 81 mg Enteric Coated Tablet PO SCH (20:25)
[2021-04-17] MEDS: Melatonin 3 MG TAB PO SCH (20:25)
[2021-04-17] MEDS: Mirtazapine 15 MG TAB PO SCH (20:25)
[2021-04-18] MEDS: Arformoterol 15 MCG/2 ML NEB NEB SCH ×2 (08:46→20:18)
[2021-04-18] MEDS: Rifaximin 550 MG TAB PO SCH ×2 (08:47→20:17)
[2021-04-18] MEDS: Cyanocobalamin (Vitamin B-12) 1,000 MCG TAB PO SCH (08:47)
[2021-04-18] MEDS: Fluconazole 100 MG TAB PO SCH (08:47)
[2021-04-18] MEDS: Budesonide 0.5 MG/2 ML NEB NEB SCH ×2 (08:47→20:18)
[2021-04-18] MEDS: Magnesium Oxide 400 MG TAB PO SCH (08:48)
[2021-04-18] MEDS: Spironolactone 25 MG TAB PO SCH (08:48)
[2021-04-18] MEDS: Metoprolol Tartrate 25 MG TAB PO SCH ×2 (08:48→20:18)
[2021-04-18] MEDS: Melatonin 3 MG TAB PO SCH (20:17)
[2021-04-18] MEDS: Mirtazapine 15 MG TAB PO SCH (20:18)
[2021-04-18] MEDS: Acetaminophen/Codeine 30-300mg Tablet PO PRN (20:19)
[2021-04-18] MEDS: Aspirin 81 mg Enteric Coated Tablet PO SCH (20:21)
[2021-04-19] MEDS: Rifaximin 550 MG TAB PO SCH ×2 (09:53→20:10)
[2021-04-19] MEDS: Arformoterol 15 MCG/2 ML NEB NEB SCH ×2 (09:53→20:11)
[2021-04-19] MEDS: Budesonide 0.5 MG/2 ML NEB NEB SCH ×2 (09:53→20:12)
[2021-04-19] MEDS: Spironolactone 25 MG TAB PO SCH (09:54)
[2021-04-19] MEDS: Cyanocobalamin (Vitamin B-12) 1,000 MCG TAB PO SCH (09:54)
[2021-04-19] MEDS: Magnesium Oxide 400 MG TAB PO SCH (09:54)
[2021-04-19] MEDS: Acetaminophen 500 MG TAB PO PRN (09:54)
[2021-04-19] MEDS: Metoprolol Tartrate 25 MG TAB PO SCH ×2 (09:54→20:11)
[2021-04-19] MEDS: Fluconazole 100 MG TAB PO SCH (09:54)
[2021-04-19] MEDS: Acetaminophen/Codeine 30-300mg Tablet PO PRN (20:09)
[2021-04-19] MEDS: Aspirin 81 mg Enteric Coated Tablet PO SCH (20:11)
[2021-04-19] MEDS: Melatonin 3 MG TAB PO SCH (20:12)
[2021-04-19] MEDS: Mirtazapine 15 MG TAB PO SCH (20:13)
[2021-04-20] MEDS: Acetaminophen/Codeine 30-300mg Tablet PO PRN (08:32)
[2021-04-20] MEDS: Spironolactone 25 MG TAB PO SCH (08:33)
[2021-04-20] MEDS: Fluconazole 100 MG TAB PO SCH (08:33)
[2021-04-20] MEDS: Cyanocobalamin (Vitamin B-12) 1,000 MCG TAB PO SCH (08:34)
[2021-04-20] MEDS: Rifaximin 550 MG TAB PO SCH ×2 (08:35→20:00)
[2021-04-20] MEDS: Metoprolol Tartrate 25 MG TAB PO SCH ×2 (08:35→20:00)
[2021-04-20] MEDS: Arformoterol 15 MCG/2 ML NEB NEB SCH ×2 (08:36→20:01)
[2021-04-20] MEDS: Budesonide 0.5 MG/2 ML NEB NEB SCH ×2 (08:37→20:01)
[2021-04-20] MEDS: Magnesium Oxide 400 MG TAB PO SCH (09:12)
[2021-04-20] MEDS: Melatonin 3 MG TAB PO SCH (20:00)
[2021-04-20] MEDS: Aspirin 81 mg Enteric Coated Tablet PO SCH (20:01)
[2021-04-20] MEDS: Mirtazapine 15 MG TAB PO SCH (20:01)
[2021-04-21] MEDS: Rifaximin 550 MG TAB PO SCH ×2 (08:24→20:54)
[2021-04-21] MEDS: Spironolactone 25 MG TAB PO SCH (08:24)
[2021-04-21] MEDS: Fluconazole 100 MG TAB PO SCH (08:24)
[2021-04-21] MEDS: Metoprolol Tartrate 25 MG TAB PO SCH ×2 (08:24→20:54)
[2021-04-21] MEDS: Magnesium Oxide 400 MG TAB PO SCH (08:24)
[2021-04-21] MEDS: Cyanocobalamin (Vitamin B-12) 1,000 MCG TAB PO SCH (08:24)
[2021-04-21] MEDS: Arformoterol 15 MCG/2 ML NEB NEB SCH ×2 (08:25→20:53)
[2021-04-21] MEDS: Budesonide 0.5 MG/2 ML NEB NEB SCH ×2 (08:27→20:53)
[2021-04-21 09:31] LABS: Anion Gap 13 mmol/L (10-20); BUN (Urea Nitrogen) 9 mg/dL (8.4-25.7); Calc. Creatinine Clearance 78 mL/min (70-130); Calcium 11.4 mg/dL (7.8-10.44); Carbon Dioxide 24 mmol/L (23-31); Chloride 109 mmol/L (98-107); Glucose 110 mg/dL (83-110); Potassium 4.1 mmol/L (3.5-5.1); Sodium 142 mmol/L (136-145)
[2021-04-21] MEDS: Melatonin 3 MG TAB PO SCH (20:53)
[2021-04-21] MEDS: Mirtazapine 15 MG TAB PO SCH (20:54)
[2021-04-21] MEDS: Aspirin 81 mg Enteric Coated Tablet PO SCH (20:54)
[2021-04-21 22:52] LABS: SARS-CoV-2 PCR by NAA Not Detected (NotDetected)
[2021-04-22] MEDS: Arformoterol 15 MCG/2 ML NEB NEB SCH ×2 (08:36→20:04)
[2021-04-22] MEDS: Budesonide 0.5 MG/2 ML NEB NEB SCH ×2 (08:37→20:05)
[2021-04-22] MEDS: Acetaminophen 500 MG TAB PO PRN (08:39)
[2021-04-22] MEDS: Fluconazole 100 MG TAB PO SCH (08:40)
[2021-04-22] MEDS: Magnesium Oxide 400 MG TAB PO SCH (08:41)
[2021-04-22] MEDS: Spironolactone 25 MG TAB PO SCH (08:41)
[2021-04-22] MEDS: Metoprolol Tartrate 25 MG TAB PO SCH ×2 (08:41→20:06)
[2021-04-22] MEDS: Cyanocobalamin (Vitamin B-12) 1,000 MCG TAB PO SCH (08:42)
[2021-04-22] MEDS: Rifaximin 550 MG TAB PO SCH ×2 (08:42→20:05)
[2021-04-22 15:42] VITALS: BMI 26.6
[2021-04-22] MEDS: Acetaminophen/Codeine 30-300mg Tablet PO PRN (20:03)
[2021-04-22] MEDS: Melatonin 3 MG TAB PO SCH (20:05)
[2021-04-22] MEDS: Aspirin 81 mg Enteric Coated Tablet PO SCH (20:05)
[2021-04-22] MEDS: Mirtazapine 15 MG TAB PO SCH (20:05)
[2021-04-23] MEDS: Acetaminophen/Codeine 30-300mg Tablet PO PRN ×2 (07:27→21:07)
[2021-04-23] MEDS: Fluconazole 100 MG TAB PO SCH (08:17)
[2021-04-23] MEDS: Spironolactone 25 MG TAB PO SCH (08:17)
[2021-04-23] MEDS: Arformoterol 15 MCG/2 ML NEB NEB SCH ×2 (08:17→21:13)
[2021-04-23] MEDS: Magnesium Oxide 400 MG TAB PO SCH (08:18)
[2021-04-23] MEDS: Rifaximin 550 MG TAB PO SCH ×2 (08:18→21:18)
[2021-04-23] MEDS: Budesonide 0.5 MG/2 ML NEB NEB SCH ×2 (08:18→21:17)
[2021-04-23] MEDS: Metoprolol Tartrate 25 MG TAB PO SCH ×2 (08:18→21:18)
[2021-04-23] MEDS: Cyanocobalamin (Vitamin B-12) 1,000 MCG TAB PO SCH (08:18)
[2021-04-23] MEDS: Melatonin 3 MG TAB PO SCH (21:12)
[2021-04-23] MEDS: Aspirin 81 mg Enteric Coated Tablet PO SCH (21:17)
[2021-04-23] MEDS: Mirtazapine 15 MG TAB PO SCH (21:18)
[2021-04-24] MEDS: Arformoterol 15 MCG/2 ML NEB NEB SCH ×2 (09:11→20:37)
[2021-04-24] MEDS: Rifaximin 550 MG TAB PO SCH ×2 (09:11→20:39)
[2021-04-24] MEDS: Fluconazole 100 MG TAB PO SCH (09:11)
[2021-04-24] MEDS: Budesonide 0.5 MG/2 ML NEB NEB SCH ×2 (09:11→21:04)
[2021-04-24] MEDS: Spironolactone 25 MG TAB PO SCH (09:11)
[2021-04-24] MEDS: Magnesium Oxide 400 MG TAB PO SCH (09:12)
[2021-04-24] MEDS: Metoprolol Tartrate 25 MG TAB PO SCH ×2 (09:12→20:40)
[2021-04-24] MEDS: Cyanocobalamin (Vitamin B-12) 1,000 MCG TAB PO SCH (09:12)
[2021-04-24] MEDS: Acetaminophen/Codeine 30-300mg Tablet PO PRN (16:25)
[2021-04-24] MEDS: Mirtazapine 15 MG TAB PO SCH (20:39)
[2021-04-24] MEDS: Aspirin 81 mg Enteric Coated Tablet PO SCH (20:39)
[2021-04-24] MEDS: Melatonin 3 MG TAB PO SCH (20:39)
[2021-04-24] MEDS: Acetaminophen 500 MG TAB PO PRN (20:49)
[2021-04-25] MEDS: Arformoterol 15 MCG/2 ML NEB NEB SCH ×2 (08:51→21:21)
[2021-04-25] MEDS: Rifaximin 550 MG TAB PO SCH ×2 (08:52→21:15)
[2021-04-25] MEDS: Metoprolol Tartrate 25 MG TAB PO SCH ×2 (08:52→21:16)
[2021-04-25] MEDS: Cyanocobalamin (Vitamin B-12) 1,000 MCG TAB PO SCH (08:52)
[2021-04-25] MEDS: Fluconazole 100 MG TAB PO SCH (08:52)
[2021-04-25] MEDS: Magnesium Oxide 400 MG TAB PO SCH (08:53)
[2021-04-25] MEDS: Spironolactone 25 MG TAB PO SCH (08:53)
[2021-04-25] MEDS: Budesonide 0.5 MG/2 ML NEB NEB SCH ×2 (08:53→21:19)
[2021-04-25] MEDS: Melatonin 3 MG TAB PO SCH (21:15)
[2021-04-25] MEDS: Mirtazapine 15 MG TAB PO SCH (21:15)
[2021-04-25] MEDS: Aspirin 81 mg Enteric Coated Tablet PO SCH (21:15)
[2021-04-26] MEDS: Arformoterol 15 MCG/2 ML NEB NEB SCH ×2 (08:36→21:18)
[2021-04-26] MEDS: Budesonide 0.5 MG/2 ML NEB NEB SCH ×2 (08:36→21:18)
[2021-04-26] MEDS: Fluconazole 100 MG TAB PO SCH (08:37)
[2021-04-26] MEDS: Cyanocobalamin (Vitamin B-12) 1,000 MCG TAB PO SCH (08:37)
[2021-04-26] MEDS: Rifaximin 550 MG TAB PO SCH ×2 (08:37→21:19)
[2021-04-26] MEDS: Spironolactone 25 MG TAB PO SCH (08:38)
[2021-04-26] MEDS: Magnesium Oxide 400 MG TAB PO SCH (08:38)
[2021-04-26] MEDS: Metoprolol Tartrate 25 MG TAB PO SCH ×2 (08:39→21:19)
[2021-04-26] MEDS: Melatonin 3 MG TAB PO SCH (21:18)
[2021-04-26] MEDS: Aspirin 81 mg Enteric Coated Tablet PO SCH (21:18)
[2021-04-26] MEDS: Mirtazapine 15 MG TAB PO SCH (21:19)
[2021-04-27 05:28] LABS: #Eosinphils 0.3 thou/uL (0.0-0.7); #Lymphocytes 1.7 thou/uL (1.20-3.40); #Monocytes 0.7 thou/uL (0.11-0.59); %Basophils 0.9 % (0.0-1.0); %Lymphocytes 29.1 % (21.0-51.0); %Monocytes 12.3 % (0.0-10.0); %Neutrophils 51.8 % (42.0-75.0); Hemoglobin 13.1 g/dL (14.0-18.0); Mean Corpuscular HGB CONC 31.4 g/dL (32.0-36.0); Mean Corpuscular Hemoglobin 29.1 pg (27.0-31.0); Mean Corpuscular Volume 92.9 fL (78.0-98.0); Mean Platelet Volume 5.9 fL (7.4-10.4); Platelet Count 172 thou/uL (130-400); RBC Distribution Width 16.2 % (11.5-14.5); Red Blood Cell (RBC) Count 4.49 mill/uL (4.70-6.10); White Blood Cell (WBC) Count 5.7 thou/uL (4.8-10.8)
[2021-04-27 05:50] LABS: ALT (SGPT) 24 U/L (8-55); AST (SGOT) 25 U/L (5-34); Albumin 3.1 g/dL (3.4-4.8); Alkaline Phosphatase 119 U/L (40-110); Anion Gap 11 mmol/L (10-20); BUN (Urea Nitrogen) 9 mg/dL (8.4-25.7); Bilirubin, Total 1.1 mg/dL (0.2-1.2); CRP (Inflammatory) 1.36 mg/dL (= or < 0.5); Calc. Creatinine Clearance 95 mL/min (70-130); Calcium 11.2 mg/dL (7.8-10.44); Carbon Dioxide 24 mmol/L (23-31); Chloride 110 mmol/L (98-107); Globulin 3.6 g/dL (2.4-3.5); Glucose 83 mg/dL (83-110); Potassium 3.9 mmol/L (3.5-5.1); Protein, Total 6.7 g/dL (5.8-8.1); Sodium 141 mmol/L (136-145)
[2021-04-27 07:29] VITALS: BP 123/61; TEMP 97.5
[2021-04-27] MEDS: Arformoterol 15 MCG/2 ML NEB NEB SCH (08:48)
[2021-04-27] MEDS: Budesonide 0.5 MG/2 ML NEB NEB SCH (08:50)
[2021-04-27] MEDS: Spironolactone 25 MG TAB PO SCH (08:51)
[2021-04-27] MEDS: Cyanocobalamin (Vitamin B-12) 1,000 MCG TAB PO SCH (08:51)
[2021-04-27] MEDS: Magnesium Oxide 400 MG TAB PO SCH (08:52)
[2021-04-27] MEDS: Metoprolol Tartrate 25 MG TAB PO SCH (08:52)
[2021-04-27] MEDS: Fluconazole 100 MG TAB PO SCH (08:53)
[2021-04-27] MEDS: Rifaximin 550 MG TAB PO SCH (08:56)
== END 2021-04-27 14:42 | disposition home or self-care (01) | DRG 948 ==
LOC: UNDOADMIN 15:22 → MADMS 15:22
PROVIDERS: ADMIT Family Medicine; ATTEND Family Medicine
DX: R53.1 Weakness (principal); I42.2 Other hypertrophic cardiomyopathy; Z20.822 Contact with and (suspected) exposure to COVID-19; I25.10 Atherosclerotic heart disease of native coronary artery without angina pectoris; N18.9 Chronic kidney disease, unspecified; I48.0 Paroxysmal atrial fibrillation; E83.52 Hypercalcemia; K76.0 Fatty (change of) liver, not elsewhere classified; M17.11 Unilateral primary osteoarthritis, right knee; K74.60 Unspecified cirrhosis of liver; G47.33 Obstructive sleep apnea (adult) (pediatric); Z99.81 Dependence on supplemental oxygen; Z90.49 Acquired absence of other specified parts of digestive tract; Z79.891 Long term (current) use of opiate analgesic; Z79.82 Long term (current) use of aspirin; Z95.5 Presence of coronary angioplasty implant and graft; Z95.1 Presence of aortocoronary bypass graft; Z87.440 Personal history of urinary (tract) infections; Z87.01 Personal history of pneumonia (recurrent); Z79.899 Other long term (current) drug therapy; Z88.0 Allergy status to penicillin; Z88.8 Allergy status to other drugs, medicaments and biological substances
CPT/HCPCS: 36415; 36416; 80048; 80053; 85025; 86140; 87070; 87205; 97602; J7626; U0003; U0005

== ENCOUNTER 2021-05-25 11:09 | Emergency (ER) | payer MEDICARE ==
[2021-05-25 12:01] LABS: #Basophils 0.1 thou/uL (0.0-0.2); #Eosinphils 0.4 thou/uL (0.0-0.7); #Lymphocytes 1.7 thou/uL (1.20-3.40); #Monocytes 0.6 thou/uL (0.11-0.59); #Neutrophils 3.5 thou/uL (1.40-6.50); %Basophils 1.2 % (0.0-1.0); %Eosinophils 6.3 % (0.0-10.0); %Lymphocytes 26.6 % (21.0-51.0); %Neutrophils 55.8 % (42.0-75.0); Hemoglobin 14.6 g/dL (14.0-18.0); Mean Corpuscular HGB CONC 30.8 g/dL (32.0-36.0); Mean Corpuscular Hemoglobin 28.3 pg (27.0-31.0); Mean Corpuscular Volume 91.7 fL (78.0-98.0); Mean Platelet Volume 6.6 fL (7.4-10.4); Platelet Count 241 thou/uL (130-400); RBC Distribution Width 16.3 % (11.5-14.5); Red Blood Cell (RBC) Count 5.17 mill/uL (4.70-6.10); White Blood Cell (WBC) Count 6.3 thou/uL (4.8-10.8)
[2021-05-25 12:19] LABS: ALT (SGPT) 17 U/L (8-55); AST (SGOT) 32 U/L (5-34); Albumin 3.6 g/dL (3.4-4.8); Alkaline Phosphatase 106 U/L (40-110); Anion Gap 17 mmol/L (10-20); BUN (Urea Nitrogen) 13 mg/dL (8.4-25.7); Bilirubin, Total 1.5 mg/dL (0.2-1.2); Calc. Creatinine Clearance 0 mL/min (70-130); Calcium 10.8 mg/dL (7.8-10.44); Carbon Dioxide 20 mmol/L (23-31); Chloride 110 mmol/L (98-107); Globulin 3.9 g/dL (2.4-3.5); Glucose 70 mg/dL (83-110); Protein, Total 7.5 g/dL (5.8-8.1); Sodium 143 mmol/L (136-145)
[2021-05-25 12:30] LABS: Bilirubin Negative (Negative); Blood, Urine Negative (Negative); Glucose, Urine (Dipstick) Negative (Negative); Ketone, Urine Negative (Negative); Leukocyte Small (Negative); Nitrite Negative (Negative); Protein, Urine (Dipstick) Negative (Neg-Trace); Specific Gravity, Urine 1.015 (1.005-1.030); Urobilinogen 0.2 mg/dL (Less than 2)
[2021-05-25 12:33] LABS: Clarity Cloudy (Clear)
[2021-05-25 12:36] LABS: Bacteria/HPF 3+ HPF (None Seen); RBC/HPF None Seen HPF (0-3); Squamous Epithelial 0-3 HPF (0-3); WBC/HPF 21-50 HPF (0-3)
[2021-05-25 12:37] LABS: CKMB 5.2 ng/mL (0-6.6)
[2021-05-25 12:38] LABS: Cocaine Metabolite Screen Not Detected (NotDetected); Opiate Screen Detected (NotDetected); Phencyclidine (PCP) Not Detected (NotDetected); THC/Cannabinoid Screen Not Detected (NotDetected)
[2021-05-25 12:39] LABS: Amphetamine Not Detected (NotDetected); Barbiturates Screen Not Detected (NotDetected); Benzodiazepine Screen Not Detected (NotDetected); Medtox Control Line Valid? VALID (VALID); Methadone Not Detected (NotDetected); Methamphetamine Not Detected (NotDetected); Oxycodone Screen Not Detected (NotDetected); Tricyclic Screen Not Detected (NotDetected)
[2021-05-25] MEDS ORDERED: cefTRIAXone\\ROCEPHIN 2 GM VIAL ONE (12:49)
[2021-05-25] MEDS ORDERED: Sodium Chloride 0.9% 1,000 ML ONE (12:49)
[2021-05-25] MEDS ORDERED: Sodium Chloride 0.9% 100 ML ONE (12:49)
[2021-05-25 14:04] LABS: SARS-CoV-2 NAA Rapid Test Not Detected (NotDetected)
[2021-05-25] MEDS ORDERED: Azithromycin 500 MG VIAL ONE (14:11)
[2021-05-25] MEDS ORDERED: Sodium Chloride 0.9% 250 ML 250 ML ONE (14:11)
[2021-05-25] MEDS ORDERED: Ondansetron PF 4 MG/2 ML Vial IVP PRN (17:00)
[2021-05-25] MEDS ORDERED: Acetaminophen 325 MG TAB PO PRN (17:00)
[2021-05-25] MEDS ORDERED: Ondansetron ODT 4 MG TAB SL PRN (17:00)
== END 2021-05-25 14:26 | disposition short-term general hospital (02) ==
LOC: MADERS 11:09
DX: R41.0 Disorientation, unspecified (principal); N30.00 Acute cystitis without hematuria; I48.20 Chronic atrial fibrillation, unspecified; J98.4 Other disorders of lung; Z20.822 Contact with and (suspected) exposure to COVID-19; Z79.899 Other long term (current) drug therapy; Z79.82 Long term (current) use of aspirin; K21.9 Gastro-esophageal reflux disease without esophagitis; E78.5 Hyperlipidemia, unspecified; E78.00 Pure hypercholesterolemia, unspecified; I11.0 Hypertensive heart disease with heart failure; I50.9 Heart failure, unspecified; M19.90 Unspecified osteoarthritis, unspecified site; G47.30 Sleep apnea, unspecified; Z86.73 Personal history of transient ischemic attack (TIA), and cerebral infarction without residual deficits; G47.00 Insomnia, unspecified; Z87.891 Personal history of nicotine dependence
CPT/HCPCS: 36415; 70450; 71045; 80053; 80306; 81003; 81015; 82140; 82553; 83605; 84443; 84484; 85025; 87040; 93005; 96365; 96375; J0456; J0696; J3490; J7050; U0002

== ENCOUNTER 2021-06-15 14:44 | Outpatient (CLI) | payer MEDICARE ==
[2021-06-15 15:20] LABS: #Basophils 0.1 thou/uL (0.0-0.2); #Eosinphils 0.2 thou/uL (0.0-0.7); #Lymphocytes 1.1 thou/uL (1.20-3.40); #Monocytes 0.5 thou/uL (0.11-0.59); #Neutrophils 2.9 thou/uL (1.40-6.50); %Basophils 1.7 % (0.0-1.0); %Eosinophils 5.1 % (0.0-10.0); %Lymphocytes 23.5 % (21.0-51.0); %Monocytes 10.2 % (0.0-10.0); %Neutrophils 59.4 % (42.0-75.0); Hemoglobin 13.7 g/dL (14.0-18.0); Mean Corpuscular HGB CONC 32.8 g/dL (32.0-36.0); Mean Corpuscular Hemoglobin 29.1 pg (27.0-31.0); Mean Corpuscular Volume 88.7 fL (78.0-98.0); Platelet Count 128 thou/uL (130-400); RBC Distribution Width 16.4 % (11.5-14.5); Red Blood Cell (RBC) Count 4.72 mill/uL (4.70-6.10); White Blood Cell (WBC) Count 4.9 thou/uL (4.8-10.8)
[2021-06-15 17:10] LABS: Band 2 % (5-11); Eosinophils 2 % (0-10); Lymphocytes 31 % (21-51); MDiff Complete? YES; Monocytes 16 % (0-10); Neutrophil 46 % (42-75); Nucleated RBC 2 % (0); Platelet Morphology Comment Appears Adequate; Reactive Lymphocytes 3 % (0-10)
== END 2021-06-15 14:45 | disposition home or self-care (01) ==
LOC: MADLAB 14:44
PROVIDERS: ATTEND Internal Medicine Infectious Disease
DX: T81.42XD Infection following a procedure, deep incisional surgical site, subsequent encounter (principal); G93.41 Metabolic encephalopathy; K72.00 Acute and subacute hepatic failure without coma
CPT/HCPCS: 85025; 86140

== ENCOUNTER 2021-06-22 16:57 | Outpatient (CLI) | payer MEDICARE ==
[2021-06-22 17:17] LABS: #Basophils 0.1 thou/uL (0.0-0.2); #Eosinphils 0.3 thou/uL (0.0-0.7); #Lymphocytes 1.5 thou/uL (1.20-3.40); #Monocytes 0.7 thou/uL (0.11-0.59); #Neutrophils 2.8 thou/uL (1.40-6.50); %Basophils 1.9 % (0.0-1.0); %Eosinophils 5.7 % (0.0-10.0); %Monocytes 13.7 % (0.0-10.0); %Neutrophils 51.8 % (42.0-75.0); Hemoglobin 12.5 g/dL (14.0-18.0); Mean Corpuscular HGB CONC 32.4 g/dL (32.0-36.0); Mean Corpuscular Hemoglobin 28.6 pg (27.0-31.0); Mean Corpuscular Volume 88.3 fL (78.0-98.0); Mean Platelet Volume 5.7 fL (7.4-10.4); Platelet Count 219 thou/uL (130-400); Red Blood Cell (RBC) Count 4.38 mill/uL (4.70-6.10); White Blood Cell (WBC) Count 5.4 thou/uL (4.8-10.8)
== END 2021-06-22 16:58 | disposition home or self-care (01) ==
LOC: MADLAB 16:57
PROVIDERS: ATTEND Internal Medicine Infectious Disease
DX: T81.42XD Infection following a procedure, deep incisional surgical site, subsequent encounter (principal); G93.41 Metabolic encephalopathy
CPT/HCPCS: 85025; 86140

== ENCOUNTER 2021-07-06 15:04 | Outpatient (CLI) | payer MEDICARE ==
[2021-07-06 15:23] LABS: #Basophils 0.1 thou/uL (0.0-0.2); #Eosinphils 0.2 thou/uL (0.0-0.7); #Lymphocytes 1.4 thou/uL (1.20-3.40); #Monocytes 0.7 thou/uL (0.11-0.59); #Neutrophils 3.1 thou/uL (1.40-6.50); %Basophils 1.3 % (0.0-1.0); %Eosinophils 4.4 % (0.0-10.0); %Monocytes 13.1 % (0.0-10.0); %Neutrophils 56.2 % (42.0-75.0); Hemoglobin 13.2 g/dL (14.0-18.0); Mean Corpuscular HGB CONC 31.1 g/dL (32.0-36.0); Mean Platelet Volume 5.8 fL (7.4-10.4); Platelet Count 275 thou/uL (130-400); RBC Distribution Width 16.8 % (11.5-14.5); Red Blood Cell (RBC) Count 4.71 mill/uL (4.70-6.10); White Blood Cell (WBC) Count 5.6 thou/uL (4.8-10.8)
== END 2021-07-06 15:05 | disposition home or self-care (01) ==
LOC: MADLAB 15:04
PROVIDERS: ATTEND Internal Medicine Infectious Disease
DX: I13.0 Hypertensive heart and chronic kidney disease with heart failure and stage 1 through stage 4 chronic kidney disease, or unspecified chronic kidney disease (principal); I50.9 Heart failure, unspecified; N18.9 Chronic kidney disease, unspecified; G93.41 Metabolic encephalopathy
CPT/HCPCS: 85025; 86140

== ENCOUNTER 2021-08-05 15:09 | Outpatient (CLI) | payer MEDICARE ==
[2021-08-05 16:25] LABS: #Basophils 0.1 thou/uL (0.0-0.2); #Eosinphils 0.2 thou/uL (0.0-0.7); #Lymphocytes 1.1 thou/uL (1.20-3.40); #Monocytes 0.7 thou/uL (0.11-0.59); #Neutrophils 2.9 thou/uL (1.40-6.50); %Basophils 1.4 % (0.0-1.0); %Eosinophils 4.9 % (0.0-10.0); %Lymphocytes 22.3 % (21.0-51.0); %Monocytes 13.3 % (0.0-10.0); %Neutrophils 58.1 % (42.0-75.0); Anisocytosis SLIGHT = 6-15 cells (100X) (0-5/hpf); Hemoglobin 11.2 g/dL (14.0-18.0); Hypochromia SLIGHT = 6-15 cells (100X) (0-5/hpf); MDiff Complete? YES; Mean Corpuscular HGB CONC 30.2 g/dL (32.0-36.0); Mean Corpuscular Volume 92.7 fL (78.0-98.0); Mean Platelet Volume 6.6 fL (7.4-10.4); Microcytosis SLIGHT = 6-15 cells (100X) (0-5/hpf); Ovalocytes SLIGHT = 2-5 cells (100X) (0-1/hpf); Platelet Count 199 thou/uL (130-400); Platelet Morphology Comment Appears Adequate; Red Blood Cell (RBC) Count 3.98 mill/uL (4.70-6.10); White Blood Cell (WBC) Count 4.9 thou/uL (4.8-10.8)
== END 2021-08-05 15:10 | disposition home or self-care (01) ==
LOC: MADLAB 15:09
PROVIDERS: ATTEND Internal Medicine Infectious Disease
DX: K72.00 Acute and subacute hepatic failure without coma (principal); G93.40 Encephalopathy, unspecified; Z87.440 Personal history of urinary (tract) infections
CPT/HCPCS: 85025; 86140

== ENCOUNTER 2021-08-17 14:33 | Outpatient (CLI) | payer MEDICARE ==
[2021-08-17 15:24] LABS: #Basophils 0.1 thou/uL (0.0-0.2); #Eosinphils 0.3 thou/uL (0.0-0.7); #Monocytes 0.6 thou/uL (0.11-0.59); #Neutrophils 2.6 thou/uL (1.40-6.50); %Basophils 1.3 % (0.0-1.0); %Eosinophils 5.6 % (0.0-10.0); %Lymphocytes 21.7 % (21.0-51.0); %Monocytes 12.7 % (0.0-10.0); %Neutrophils 58.8 % (42.0-75.0); Hemoglobin 11.3 g/dL (14.0-18.0); Mean Corpuscular HGB CONC 29.7 g/dL (32.0-36.0); Mean Corpuscular Hemoglobin 27.3 pg (27.0-31.0); Mean Platelet Volume 6.3 fL (7.4-10.4); Platelet Count 162 thou/uL (130-400); RBC Distribution Width 16.2 % (11.5-14.5); Red Blood Cell (RBC) Count 4.13 mill/uL (4.70-6.10); White Blood Cell (WBC) Count 4.5 thou/uL (4.8-10.8)
== END 2021-08-17 14:34 | disposition home or self-care (01) ==
LOC: MADLAB 14:33
PROVIDERS: ATTEND Internal Medicine Infectious Disease
DX: I13.0 Hypertensive heart and chronic kidney disease with heart failure and stage 1 through stage 4 chronic kidney disease, or unspecified chronic kidney disease (principal); K72.00 Acute and subacute hepatic failure without coma; I50.9 Heart failure, unspecified; N18.9 Chronic kidney disease, unspecified; Z87.440 Personal history of urinary (tract) infections
CPT/HCPCS: 85025; 86140

== ENCOUNTER 2021-08-20 21:07 | Emergency (ER) | payer MEDICARE ==
[2021-08-20] MEDS ORDERED: Oxymetazoline HCl 0.05% (30 ML BOT) ONE (21:54)
== END 2021-08-20 22:27 | disposition home or self-care (01) ==
LOC: MADERS 21:07
DX: R04.0 Epistaxis (principal); I10 Essential (primary) hypertension; I48.91 Unspecified atrial fibrillation; K21.9 Gastro-esophageal reflux disease without esophagitis; E78.5 Hyperlipidemia, unspecified; E78.00 Pure hypercholesterolemia, unspecified; M19.90 Unspecified osteoarthritis, unspecified site; Z86.73 Personal history of transient ischemic attack (TIA), and cerebral infarction without residual deficits; Z87.891 Personal history of nicotine dependence; Z79.82 Long term (current) use of aspirin; Z79.899 Other long term (current) drug therapy
CPT/HCPCS: 99283

== ENCOUNTER 2021-10-01 10:42 | Outpatient (CLI) | payer MEDICARE ==
[2021-10-01 11:44] LABS: INR-International Normal Ratio 1.3; Prothrombin Time 16.6 sec (12.0-14.7)
[2021-10-01 11:50] LABS: #Basophils 0.1 thou/uL (0.0-0.2); #Eosinphils 0.3 thou/uL (0.0-0.7); #Lymphocytes 1.1 thou/uL (1.20-3.40); #Monocytes 0.4 thou/uL (0.11-0.59); #Neutrophils 2.3 thou/uL (1.40-6.50); %Basophils 1.4 % (0.0-1.0); %Lymphocytes 25.6 % (21.0-51.0); %Monocytes 10.1 % (0.0-10.0); %Neutrophils 54.9 % (42.0-75.0); Hemoglobin 11.6 g/dL (14.0-18.0); Mean Corpuscular HGB CONC 31.1 g/dL (32.0-36.0); Mean Corpuscular Hemoglobin 27.6 pg (27.0-31.0); Mean Corpuscular Volume 88.8 fL (78.0-98.0); Mean Platelet Volume 6.5 fL (7.4-10.4); Platelet Count 203 thou/uL (130-400); RBC Distribution Width 16.4 % (11.5-14.5); Red Blood Cell (RBC) Count 4.21 mill/uL (4.70-6.10); White Blood Cell (WBC) Count 4.2 thou/uL (4.8-10.8)
[2021-10-01 12:01] LABS: ALT (SGPT) 14 U/L (8-55); AST (SGOT) 21 U/L (5-34); Albumin 3.5 g/dL (3.4-4.8); Alkaline Phosphatase 110 U/L (40-110); Anion Gap 13 mmol/L (10-20); BUN (Urea Nitrogen) 26 mg/dL (8.4-25.7); Calc. Creatinine Clearance 0 mL/min (70-130); Calcium 10.1 mg/dL (7.8-10.44); Carbon Dioxide 25 mmol/L (23-31); Cardiac Risk 2.3 (Less than 4.5); Chloride 110 mmol/L (98-107); Cholesterol 112 mg/dl (< 200 Desired); Globulin 2.8 g/dL (2.4-3.5); Glucose 77 mg/dL (83-110); HDL Cholesterol 49 mg/dL (>60 Neg Risk); LDL Cholesterol, Calculated 54 mg/dL; Potassium 4.2 mmol/L (3.5-5.1); Protein, Total 6.3 g/dL (5.8-8.1); Sodium 144 mmol/L (136-145); Triglycerides 46 mg/dL (Less than 150)
== END 2021-10-01 10:43 | disposition home or self-care (01) ==
LOC: MADLAB 10:42
PROVIDERS: ATTEND Internal Medicine
DX: E03.9 Hypothyroidism, unspecified (principal); E78.00 Pure hypercholesterolemia, unspecified; K74.69 Other cirrhosis of liver
CPT/HCPCS: 80053; 80061; 82105; 84443; 85025; 85610

== ENCOUNTER 2022-01-20 16:18 | Inpatient (IN) | payer MEDICARE ==
[2022-01-20] MEDS: Mirtazapine 15 MG TAB PO SCH (22:00)
[2022-01-20] MEDS: Budesonide 0.5 MG/2 ML NEB NEB SCH (22:00)
[2022-01-20] MEDS: Rifaximin 550 MG TAB PO SCH (22:01)
[2022-01-20] MEDS: Acetaminophen ER (8hr) 650 MG TAB PO SCH (22:01)
[2022-01-20] MEDS: Nystatin Powder 15 GM BOT TOP SCH (22:01)
[2022-01-20] MEDS: Apixaban 2.5 MG TAB PO SCH (22:01)
[2022-01-20] MEDS: Cefdinir 300 MG CAP PO SCH (22:01)
[2022-01-20] MEDS: GUAIFENESIN SF SOLN 200 MG/10 ML UDCUP PO SCH (22:01)
[2022-01-21 05:29] LABS: #Basophils 0.1 thou/uL (0.0-0.2); #Eosinphils 0.6 thou/uL (0.0-0.7); #Lymphocytes 1.4 thou/uL (1.20-3.40); #Monocytes 0.6 thou/uL (0.11-0.59); #Neutrophils 2.8 thou/uL (1.40-6.50); %Basophils 1.7 % (0.0-1.0); %Eosinophils 10.2 % (0.0-10.0); %Lymphocytes 25.3 % (21.0-51.0); %Monocytes 10.8 % (0.0-10.0); %Neutrophils 52.1 % (42.0-75.0); Hemoglobin 12.6 g/dL (14.0-18.0); Mean Corpuscular HGB CONC 31.9 g/dL (32.0-36.0); Mean Corpuscular Hemoglobin 28.3 pg (27.0-31.0); Mean Corpuscular Volume 88.8 fL (78.0-98.0); Mean Platelet Volume 6.6 fL (7.4-10.4); Platelet Count 192 thou/uL (130-400); RBC Distribution Width 15.1 % (11.5-14.5); Red Blood Cell (RBC) Count 4.47 mill/uL (4.70-6.10); White Blood Cell (WBC) Count 5.4 thou/uL (4.8-10.8)
[2022-01-21] MEDS: Acetaminophen ER (8hr) 650 MG TAB PO SCH (05:47)
[2022-01-21 05:49] LABS: ALT (SGPT) 12 U/L (8-55); AST (SGOT) 28 U/L (5-34); Albumin 3.3 g/dL (3.4-4.8); Alkaline Phosphatase 89 U/L (40-110); Anion Gap 14 mmol/L (10-20); BUN (Urea Nitrogen) 23 mg/dL (8.4-25.7); Bilirubin, Total 1.2 mg/dL (0.2-1.2); Calc. Creatinine Clearance 62 mL/min (70-130); Calcium 9.9 mg/dL (7.8-10.44); Carbon Dioxide 22 mmol/L (23-31); Chloride 107 mmol/L (98-107); Estimated GFR 65; Globulin 3.4 g/dL (2.4-3.5); Glucose 79 mg/dL (83-110); Potassium 4.1 mmol/L (3.5-5.1); Protein, Total 6.7 g/dL (5.8-8.1); Sodium 139 mmol/L (136-145)
[2022-01-21] MEDS ORDERED: Spironolactone 25 MG TAB PO SCH (08:00)
[2022-01-21] MEDS ORDERED: Metolazone 5 MG TAB PO SCH (09:00)
[2022-01-21] MEDS: Cyanocobalamin (Vitamin B-12) 1,000 MCG TAB PO SCH (09:06)
[2022-01-21] MEDS: Rifaximin 550 MG TAB PO SCH ×2 (09:08→21:07)
[2022-01-21] MEDS: Cefdinir 300 MG CAP PO SCH ×2 (09:08→21:07)
[2022-01-21] MEDS: Apixaban 2.5 MG TAB PO SCH ×2 (09:08→21:07)
[2022-01-21] MEDS: Bumetanide 1 MG TAB PO SCH (09:09)
[2022-01-21] MEDS: Nystatin Powder 15 GM BOT TOP SCH ×4 (09:09→21:07)
[2022-01-21] MEDS: GUAIFENESIN SF SOLN 200 MG/10 ML UDCUP PO SCH (11:36)
[2022-01-21] MEDS: Budesonide 0.5 MG/2 ML NEB NEB SCH (11:36)
[2022-01-21] MEDS: Floranex 1 GM Packet PO SCH (11:59)
[2022-01-21] MEDS: Magnesium Oxide 400 MG TAB PO SCH (11:59)
[2022-01-21] MEDS: Acetaminophen 325 MG TAB PO PRN (21:07)
[2022-01-21] MEDS: Mirtazapine 15 MG TAB PO SCH (21:07)
[2022-01-22] MEDS: Cefdinir 300 MG CAP PO SCH ×2 (08:59→21:03)
[2022-01-22] MEDS: Apixaban 2.5 MG TAB PO SCH ×2 (08:59→21:03)
[2022-01-22] MEDS: Rifaximin 550 MG TAB PO SCH ×2 (08:59→21:04)
[2022-01-22] MEDS: Cyanocobalamin (Vitamin B-12) 1,000 MCG TAB PO SCH (09:00)
[2022-01-22] MEDS: Bumetanide 1 MG TAB PO SCH (09:01)
[2022-01-22] MEDS: Nystatin Powder 15 GM BOT TOP SCH ×3 (09:03→21:04)
[2022-01-22] MEDS: Magnesium Oxide 400 MG TAB PO SCH (12:30)
[2022-01-22] MEDS: Floranex 1 GM Packet PO SCH (12:30)
[2022-01-22] MEDS: Mirtazapine 15 MG TAB PO SCH (21:04)
[2022-01-23] MEDS ORDERED: FLU VACC QS2022-23(65YR UP)/PF 240 MCG/0.7 ML SYRINGE IM ONE (09:00)
[2022-01-23] MEDS: Rifaximin 550 MG TAB PO SCH ×2 (09:24→21:39)
[2022-01-23] MEDS: Cyanocobalamin (Vitamin B-12) 1,000 MCG TAB PO SCH (09:26)
[2022-01-23] MEDS: Floranex 1 GM Packet PO SCH (09:26)
[2022-01-23] MEDS: Cefdinir 300 MG CAP PO SCH ×2 (09:27→21:38)
[2022-01-23] MEDS: Apixaban 2.5 MG TAB PO SCH ×2 (09:27→21:38)
[2022-01-23] MEDS: Bumetanide 1 MG TAB PO SCH (09:30)
[2022-01-23] MEDS: Nystatin Powder 15 GM BOT TOP SCH ×3 (09:30→21:39)
[2022-01-23] MEDS: Magnesium Oxide 400 MG TAB PO SCH (12:05)
[2022-01-23] MEDS: Mirtazapine 15 MG TAB PO SCH (21:39)
[2022-01-24] MEDS: Cefdinir 300 MG CAP PO SCH ×2 (09:48→20:23)
[2022-01-24] MEDS: Apixaban 2.5 MG TAB PO SCH ×2 (09:48→20:23)
[2022-01-24] MEDS: Floranex 1 GM Packet PO SCH (09:48)
[2022-01-24] MEDS: Cyanocobalamin (Vitamin B-12) 1,000 MCG TAB PO SCH (09:49)
[2022-01-24] MEDS: Rifaximin 550 MG TAB PO SCH ×2 (09:49→20:23)
[2022-01-24] MEDS: Bumetanide 1 MG TAB PO SCH (09:49)
[2022-01-24] MEDS: Nystatin Powder 15 GM BOT TOP SCH ×3 (09:52→20:23)
[2022-01-24] MEDS: Magnesium Oxide 400 MG TAB PO SCH (11:01)
[2022-01-24] MEDS: Mirtazapine 15 MG TAB PO SCH (20:23)
[2022-01-25] MEDS: Apixaban 2.5 MG TAB PO SCH ×2 (08:19→20:29)
[2022-01-25] MEDS: Cyanocobalamin (Vitamin B-12) 1,000 MCG TAB PO SCH (08:19)
[2022-01-25] MEDS: Cefdinir 300 MG CAP PO SCH ×2 (08:19→20:28)
[2022-01-25] MEDS: Bumetanide 1 MG TAB PO SCH (08:20)
[2022-01-25] MEDS: Nystatin Powder 15 GM BOT TOP SCH ×4 (08:20→20:29)
[2022-01-25] MEDS: Floranex 1 GM Packet PO SCH (08:20)
[2022-01-25] MEDS: Rifaximin 550 MG TAB PO SCH ×2 (08:20→20:28)
[2022-01-25] MEDS: Magnesium Oxide 400 MG TAB PO SCH (11:41)
[2022-01-25] MEDS: Mirtazapine 15 MG TAB PO SCH (20:29)
[2022-01-26] MEDS: Cefdinir 300 MG CAP PO SCH ×2 (08:50→20:19)
[2022-01-26] MEDS: Floranex 1 GM Packet PO SCH (08:50)
[2022-01-26] MEDS: Rifaximin 550 MG TAB PO SCH ×2 (08:50→20:20)
[2022-01-26] MEDS: Cyanocobalamin (Vitamin B-12) 1,000 MCG TAB PO SCH (08:50)
[2022-01-26] MEDS: Bumetanide 1 MG TAB PO SCH (08:51)
[2022-01-26] MEDS: Apixaban 2.5 MG TAB PO SCH ×2 (08:51→20:20)
[2022-01-26] MEDS: Nystatin Powder 15 GM BOT TOP SCH ×3 (11:27→20:21)
[2022-01-26] MEDS: Magnesium Oxide 400 MG TAB PO SCH (11:28)
[2022-01-26] MEDS: Mirtazapine 15 MG TAB PO SCH (20:20)
[2022-01-26] MEDS: Acetaminophen 325 MG TAB PO PRN (20:20)
[2022-01-27] MEDS: Rifaximin 550 MG TAB PO SCH ×2 (08:18→21:39)
[2022-01-27] MEDS: Bumetanide 1 MG TAB PO SCH (08:18)
[2022-01-27] MEDS: Apixaban 2.5 MG TAB PO SCH ×2 (08:18→21:38)
[2022-01-27] MEDS: Floranex 1 GM Packet PO SCH (08:18)
[2022-01-27] MEDS: Cyanocobalamin (Vitamin B-12) 1,000 MCG TAB PO SCH (08:18)
[2022-01-27] MEDS: Magnesium Oxide 400 MG TAB PO SCH (11:55)
[2022-01-27] MEDS: Mirtazapine 15 MG TAB PO SCH (21:38)
[2022-01-27] MEDS: Acetaminophen 325 MG TAB PO PRN (21:41)
[2022-01-28 05:33] LABS: Hemoglobin 12.4 g/dL (14.0-18.0); Platelet Count 225 thou/uL (130-400)
[2022-01-28] MEDS: Floranex 1 GM Packet PO SCH (08:18)
[2022-01-28] MEDS: Apixaban 2.5 MG TAB PO SCH ×2 (08:18→21:35)
[2022-01-28] MEDS: Cyanocobalamin (Vitamin B-12) 1,000 MCG TAB PO SCH (08:18)
[2022-01-28] MEDS: Bumetanide 1 MG TAB PO SCH (08:18)
[2022-01-28] MEDS: Rifaximin 550 MG TAB PO SCH ×2 (08:18→21:35)
[2022-01-28] MEDS: Magnesium Oxide 400 MG TAB PO SCH (12:17)
[2022-01-28] MEDS: Mirtazapine 15 MG TAB PO SCH (21:35)
[2022-01-28] MEDS: Triamcinolone 0.1% Cream 15 GM TUBE TOP SCH (21:36)
[2022-01-28] MEDS: Acetaminophen 325 MG TAB PO PRN (21:39)
[2022-01-29] MEDS: Triamcinolone 0.1% Cream 15 GM TUBE TOP SCH ×2 (08:17→20:11)
[2022-01-29] MEDS: Floranex 1 GM Packet PO SCH (08:17)
[2022-01-29] MEDS: Apixaban 2.5 MG TAB PO SCH ×2 (08:18→20:11)
[2022-01-29] MEDS: Cyanocobalamin (Vitamin B-12) 1,000 MCG TAB PO SCH (08:18)
[2022-01-29] MEDS: Bumetanide 1 MG TAB PO SCH (08:18)
[2022-01-29] MEDS: Rifaximin 550 MG TAB PO SCH ×2 (08:18→20:11)
[2022-01-29] MEDS: Magnesium Oxide 400 MG TAB PO SCH (12:19)
[2022-01-29] MEDS: Mirtazapine 15 MG TAB PO SCH (20:11)
[2022-01-30] MEDS: Rifaximin 550 MG TAB PO SCH ×2 (09:00→20:33)
[2022-01-30] MEDS: Bumetanide 1 MG TAB PO SCH (09:01)
[2022-01-30] MEDS: Cyanocobalamin (Vitamin B-12) 1,000 MCG TAB PO SCH (09:01)
[2022-01-30] MEDS: Apixaban 2.5 MG TAB PO SCH ×2 (09:01→20:33)
[2022-01-30] MEDS: Triamcinolone 0.1% Cream 15 GM TUBE TOP SCH ×2 (09:04→20:57)
[2022-01-30] MEDS: Magnesium Oxide 400 MG TAB PO SCH (12:21)
[2022-01-30] MEDS: Mirtazapine 15 MG TAB PO SCH (20:33)
[2022-01-31] MEDS: Acetaminophen 325 MG TAB PO PRN (04:22)
[2022-01-31] MEDS: Cyanocobalamin (Vitamin B-12) 1,000 MCG TAB PO SCH (08:08)
[2022-01-31] MEDS: Rifaximin 550 MG TAB PO SCH ×2 (08:09→21:57)
[2022-01-31] MEDS: Apixaban 2.5 MG TAB PO SCH ×2 (08:10→21:57)
[2022-01-31] MEDS: Bumetanide 1 MG TAB PO SCH (08:10)
[2022-01-31] MEDS: Triamcinolone 0.1% Cream 15 GM TUBE TOP SCH (08:26)
[2022-01-31] MEDS: Magnesium Oxide 400 MG TAB PO SCH (11:45)
[2022-01-31] MEDS: Mirtazapine 15 MG TAB PO SCH (21:57)
[2022-02-01] MEDS: Triamcinolone 0.1% Cream 15 GM TUBE TOP SCH ×3 (03:31→21:15)
[2022-02-01] MEDS: Cyanocobalamin (Vitamin B-12) 1,000 MCG TAB PO SCH (08:17)
[2022-02-01] MEDS: Rifaximin 550 MG TAB PO SCH ×2 (08:17→21:15)
[2022-02-01] MEDS: Bumetanide 1 MG TAB PO SCH (08:17)
[2022-02-01] MEDS: Apixaban 2.5 MG TAB PO SCH ×2 (08:17→21:15)
[2022-02-01] MEDS: Magnesium Oxide 400 MG TAB PO SCH (12:04)
[2022-02-01] MEDS: Mirtazapine 15 MG TAB PO SCH (21:14)
[2022-02-02 06:04] VITALS: BMI 27.7
[2022-02-02] MEDS: Rifaximin 550 MG TAB PO SCH ×2 (08:18→21:29)
[2022-02-02] MEDS: Cyanocobalamin (Vitamin B-12) 1,000 MCG TAB PO SCH (08:18)
[2022-02-02] MEDS: Bumetanide 1 MG TAB PO SCH (08:18)
[2022-02-02] MEDS: Apixaban 2.5 MG TAB PO SCH ×2 (08:18→21:29)
[2022-02-02] MEDS: Triamcinolone 0.1% Cream 15 GM TUBE TOP SCH ×2 (08:18→21:30)
[2022-02-02] MEDS: Magnesium Oxide 400 MG TAB PO SCH (12:03)
[2022-02-02] MEDS: Mirtazapine 15 MG TAB PO SCH (21:29)
[2022-02-02] MEDS: Acetaminophen 325 MG TAB PO PRN (21:29)
[2022-02-03] MEDS: Apixaban 2.5 MG TAB PO SCH ×2 (08:31→20:48)
[2022-02-03] MEDS: Rifaximin 550 MG TAB PO SCH ×2 (08:31→20:51)
[2022-02-03] MEDS: Bumetanide 1 MG TAB PO SCH (08:31)
[2022-02-03] MEDS: Cyanocobalamin (Vitamin B-12) 1,000 MCG TAB PO SCH (08:32)
[2022-02-03] MEDS: Triamcinolone 0.1% Cream 15 GM TUBE TOP SCH ×2 (08:34→20:51)
[2022-02-03] MEDS: Magnesium Oxide 400 MG TAB PO SCH (11:25)
[2022-02-03] MEDS: Acetaminophen 325 MG TAB PO PRN (20:48)
[2022-02-03] MEDS: Mirtazapine 15 MG TAB PO SCH (20:48)
[2022-02-04 07:13] VITALS: BP 117/71; TEMP 98.1
[2022-02-04] MEDS: Rifaximin 550 MG TAB PO SCH (08:39)
[2022-02-04] MEDS: Bumetanide 1 MG TAB PO SCH (08:40)
[2022-02-04] MEDS: Cyanocobalamin (Vitamin B-12) 1,000 MCG TAB PO SCH (08:40)
[2022-02-04] MEDS: Apixaban 2.5 MG TAB PO SCH (08:40)
[2022-02-04] MEDS: Triamcinolone 0.1% Cream 15 GM TUBE TOP SCH (08:41)
[2022-02-04] MEDS: Magnesium Oxide 400 MG TAB PO SCH (11:41)
== END 2022-02-04 13:45 | disposition home health service (06) | DRG 57 ==
LOC: MADMS 16:18
PROVIDERS: ADMIT Family Medicine; ATTEND Family Medicine
DX: I69.398 Other sequelae of cerebral infarction (principal); I48.20 Chronic atrial fibrillation, unspecified; I42.2 Other hypertrophic cardiomyopathy; M86.68 Other chronic osteomyelitis, other site; R53.1 Weakness; M15.9 Polyosteoarthritis, unspecified; R41.0 Disorientation, unspecified; I25.10 Atherosclerotic heart disease of native coronary artery without angina pectoris; I11.0 Hypertensive heart disease with heart failure; I50.9 Heart failure, unspecified; R13.13 Dysphagia, pharyngeal phase; G47.33 Obstructive sleep apnea (adult) (pediatric); K74.60 Unspecified cirrhosis of liver; Z95.1 Presence of aortocoronary bypass graft; Z73.89 Other problems related to life management difficulty; Z95.5 Presence of coronary angioplasty implant and graft; Z90.49 Acquired absence of other specified parts of digestive tract; Z79.899 Other long term (current) drug therapy; Z88.0 Allergy status to penicillin; Z91.09 Other allergy status, other than to drugs and biological substances
CPT/HCPCS: 36415; 80053; 82565; 85014; 85018; 85025; 85049; 87811; J7626; U0003; U0005

== ENCOUNTER 2023-01-13 20:40 | Inpatient (IN) | payer MEDICARE ==
[2023-01-13] MEDS ORDERED: GUAIFENESIN SF SOLN 200 MG/10 ML UDCUP PO PRN (23:11)
[2023-01-14] MEDS ORDERED: Apixaban 2.5 MG TAB PO SCH (00:05)
[2023-01-14] MEDS ORDERED: Doxycycline 100 MG CAP PO SCH (00:15)
[2023-01-14] MEDS ORDERED: Rifaximin 550 MG TAB PO SCH (00:15)
[2023-01-14] MEDS: Cyanocobalamin (Vitamin B-12) 1,000 MCG TAB PO SCH (08:04)
[2023-01-14] MEDS: Doxycycline 100 MG CAP PO SCH ×2 (08:04→21:22)
[2023-01-14] MEDS: Spironolactone 25 MG TAB PO SCH (08:04)
[2023-01-14] MEDS: Apixaban 2.5 MG TAB PO SCH ×2 (08:04→21:22)
[2023-01-14] MEDS: Rifaximin 550 MG TAB PO SCH ×2 (08:09→21:22)
[2023-01-14] MEDS ORDERED: Spironolactone 25 MG TAB PO SCH (09:00)
[2023-01-14] MEDS ORDERED: FLU VACC QS2023(65UP)/MF59C/PF 60 MCG/0.5 ML SYRINGE IM ONE (09:00)
[2023-01-14] MEDS: Acetaminophen 325 MG TAB PO PRN (21:35)
[2023-01-15] MEDS: Doxycycline 100 MG CAP PO SCH ×2 (06:01→17:39)
[2023-01-15] MEDS: Cyanocobalamin (Vitamin B-12) 1,000 MCG TAB PO SCH (08:16)
[2023-01-15] MEDS: Spironolactone 25 MG TAB PO SCH (08:16)
[2023-01-15] MEDS: Apixaban 2.5 MG TAB PO SCH ×2 (08:16→20:50)
[2023-01-15] MEDS: Rifaximin 550 MG TAB PO SCH ×2 (08:16→20:49)
[2023-01-15] MEDS ORDERED: oxyCODONE 5 MG TAB PO PRN (11:18)
[2023-01-16] MEDS: Doxycycline 100 MG CAP PO SCH ×2 (05:24→17:07)
[2023-01-16] MEDS: Spironolactone 25 MG TAB PO SCH (08:06)
[2023-01-16] MEDS: Cyanocobalamin (Vitamin B-12) 1,000 MCG TAB PO SCH (08:06)
[2023-01-16] MEDS: CRANBERRY 500 MG PO SCH (08:07)
[2023-01-16] MEDS: Apixaban 2.5 MG TAB PO SCH ×2 (08:07→20:11)
[2023-01-16] MEDS: Rifaximin 550 MG TAB PO SCH ×2 (08:08→20:11)
[2023-01-16] MEDS: oxyCODONE 5 MG TAB PO PRN (23:34)
[2023-01-17] MEDS: Doxycycline 100 MG CAP PO SCH ×2 (05:00→17:37)
[2023-01-17] MEDS: Rifaximin 550 MG TAB PO SCH ×2 (09:08→20:14)
[2023-01-17] MEDS: Cyanocobalamin (Vitamin B-12) 1,000 MCG TAB PO SCH (09:08)
[2023-01-17] MEDS: Apixaban 2.5 MG TAB PO SCH ×2 (09:09→20:14)
[2023-01-17] MEDS: Spironolactone 25 MG TAB PO SCH (09:09)
[2023-01-17 09:14] LABS: #Basophils 0.1 thou/uL (0.0-0.2); #Eosinphils 0.4 thou/uL (0.0-0.7); #Lymphocytes 1.3 thou/uL (1.20-3.40); #Monocytes 0.6 thou/uL (0.11-0.59); #Neutrophils 3.7 thou/uL (1.40-6.50); %Basophils 1.1 % (0.0-1.0); %Monocytes 10.2 % (0.0-10.0); %Neutrophils 61.7 % (42.0-75.0); Hematocrit 42.6 % (42.0-52.0); Hemoglobin 13.1 g/dL (14.0-18.0); Mean Corpuscular HGB CONC 30.7 g/dL (32.0-36.0); Mean Corpuscular Hemoglobin 26.3 pg (27.0-31.0); Mean Corpuscular Volume 85.6 fl (78.0-98.0); Mean Platelet Volume 7.7 fL (7.4-10.4); Platelet Count 212 10x3/uL (130-400); RBC Distribution Width 18.3 % (11.5-14.5); Red Blood Cell (RBC) Count 4.98 mill/uL (4.70-6.10)
[2023-01-17] MEDS: CRANBERRY 500 MG PO SCH (09:14)
[2023-01-17 09:28] LABS: ALT (SGPT) 16 U/L (8-55); AST (SGOT) 32 U/L (5-34); Albumin 3.4 g/dL (3.4-4.8); Alkaline Phosphatase 107 U/L (40-110); Anion Gap 15 mmol/L (10-20); BUN (Urea Nitrogen) 20 mg/dL (8.4-25.7); Bilirubin, Total 1.1 mg/dL (0.2-1.2); Calc. Creatinine Clearance 70 mL/min (70-130); Calcium 9.8 mg/dL (7.8-10.44); Carbon Dioxide 20 mmol/L (23-31); Chloride 105 mmol/L (98-107); Estimated GFR 88; Globulin 3.5 g/dL (2.4-3.5); Glucose 76 mg/dL (83-110); Potassium 4.7 mmol/L (3.5-5.1); Protein, Total 6.9 g/dL (5.8-8.1); Sodium 135 mmol/L (136-145)
[2023-01-18] MEDS: Doxycycline 100 MG CAP PO SCH ×2 (05:34→17:17)
[2023-01-18] MEDS ORDERED: Dronabinol 2.5 MG CAP PO SCH (07:30)
[2023-01-18] MEDS: Dronabinol 2.5 MG CAP PO SCH ×2 (08:50→16:44)
[2023-01-18] MEDS: Rifaximin 550 MG TAB PO SCH ×2 (08:50→20:33)
[2023-01-18] MEDS: Cyanocobalamin (Vitamin B-12) 1,000 MCG TAB PO SCH (08:51)
[2023-01-18] MEDS: Apixaban 2.5 MG TAB PO SCH ×2 (08:52→20:33)
[2023-01-18] MEDS: CRANBERRY 500 MG PO SCH (08:53)
[2023-01-18] MEDS: Spironolactone 25 MG TAB PO SCH (09:31)
[2023-01-19] MEDS: Doxycycline 100 MG CAP PO SCH ×2 (05:42→17:01)
[2023-01-19] MEDS: Ondansetron ODT 4 MG TAB PO PRN (06:16)
[2023-01-19] MEDS: Spironolactone 25 MG TAB PO SCH (09:01)
[2023-01-19] MEDS: Dronabinol 2.5 MG CAP PO SCH ×2 (09:01→17:01)
[2023-01-19] MEDS: Rifaximin 550 MG TAB PO SCH ×2 (09:02→21:08)
[2023-01-19] MEDS: Apixaban 2.5 MG TAB PO SCH ×2 (09:02→21:09)
[2023-01-19] MEDS: Cyanocobalamin (Vitamin B-12) 1,000 MCG TAB PO SCH (09:02)
[2023-01-19] MEDS: CRANBERRY 500 MG PO SCH ×2 (09:06→21:11)
[2023-01-20] MEDS: Doxycycline 100 MG CAP PO SCH ×2 (06:01→17:04)
[2023-01-20] MEDS: Spironolactone 25 MG TAB PO SCH (08:12)
[2023-01-20] MEDS: Dronabinol 2.5 MG CAP PO SCH ×2 (08:12→17:04)
[2023-01-20] MEDS: Apixaban 2.5 MG TAB PO SCH ×2 (08:13→20:55)
[2023-01-20] MEDS: Cyanocobalamin (Vitamin B-12) 1,000 MCG TAB PO SCH (08:13)
[2023-01-20] MEDS: Rifaximin 550 MG TAB PO SCH ×2 (08:15→20:55)
[2023-01-20] MEDS: oxyCODONE 5 MG TAB PO PRN (17:03)
[2023-01-20] MEDS: Acetaminophen 325 MG TAB PO PRN (20:53)
[2023-01-20] MEDS: CRANBERRY 500 MG PO SCH (20:56)
[2023-01-21] MEDS: Doxycycline 100 MG CAP PO SCH ×2 (05:24→16:53)
[2023-01-21] MEDS: Ondansetron ODT 4 MG TAB PO PRN (08:00)
[2023-01-21] MEDS: Dronabinol 2.5 MG CAP PO SCH ×2 (08:00→16:53)
[2023-01-21] MEDS: Spironolactone 25 MG TAB PO SCH (08:01)
[2023-01-21] MEDS: Rifaximin 550 MG TAB PO SCH ×2 (08:01→21:52)
[2023-01-21] MEDS: Cyanocobalamin (Vitamin B-12) 1,000 MCG TAB PO SCH (08:01)
[2023-01-21] MEDS: Apixaban 2.5 MG TAB PO SCH ×2 (08:03→21:52)
[2023-01-21] MEDS: oxyCODONE 5 MG TAB PO PRN (19:20)
[2023-01-21] MEDS: CRANBERRY 500 MG PO SCH (21:53)
[2023-01-22] MEDS: Doxycycline 100 MG CAP PO SCH ×3 (06:10→17:16)
[2023-01-22] MEDS: Apixaban 2.5 MG TAB PO SCH ×2 (08:44→20:16)
[2023-01-22] MEDS: Cyanocobalamin (Vitamin B-12) 1,000 MCG TAB PO SCH (08:45)
[2023-01-22] MEDS: Dronabinol 2.5 MG CAP PO SCH ×2 (08:46→17:16)
[2023-01-22] MEDS: Spironolactone 25 MG TAB PO SCH (08:46)
[2023-01-22] MEDS: Rifaximin 550 MG TAB PO SCH ×2 (08:46→20:16)
[2023-01-22] MEDS: oxyCODONE 5 MG TAB PO PRN (20:16)
[2023-01-22] MEDS: CRANBERRY 500 MG PO SCH (20:20)
[2023-01-23] MEDS: Doxycycline 100 MG CAP PO SCH ×3 (05:39→17:00)
[2023-01-23] MEDS: Spironolactone 25 MG TAB PO SCH (08:20)
[2023-01-23] MEDS: Dronabinol 2.5 MG CAP PO SCH ×2 (08:20→16:41)
[2023-01-23] MEDS: Rifaximin 550 MG TAB PO SCH ×2 (08:21→21:03)
[2023-01-23] MEDS: Cyanocobalamin (Vitamin B-12) 1,000 MCG TAB PO SCH (08:21)
[2023-01-23] MEDS: Apixaban 2.5 MG TAB PO SCH ×2 (08:22→21:03)
[2023-01-23] MEDS: CRANBERRY 500 MG PO SCH (21:05)
[2023-01-24] MEDS: Doxycycline 100 MG CAP PO SCH ×2 (05:08→18:06)
[2023-01-24 05:22] LABS: Hematocrit 41.6 % (42.0-52.0); Hemoglobin 12.8 g/dL (14.0-18.0); Platelet Count 292 10x3/uL (130-400)
[2023-01-24 05:42] LABS: ALT (SGPT) 10 U/L (8-55); AST (SGOT) 22 U/L (5-34); Albumin 3.3 g/dL (3.4-4.8); Alkaline Phosphatase 111 U/L (40-110); Anion Gap 15 mmol/L (10-20); BUN (Urea Nitrogen) 20 mg/dL (8.4-25.7); Bilirubin, Total 0.8 mg/dL (0.2-1.2); Calc. Creatinine Clearance 61 mL/min (70-130); Calcium 10.4 mg/dL (7.8-10.44); Carbon Dioxide 20 mmol/L (23-31); Chloride 107 mmol/L (98-107); Estimated GFR 80; Globulin 3.2 g/dL (2.4-3.5); Glucose 76 mg/dL (83-110); Potassium 4.8 mmol/L (3.5-5.1); Protein, Total 6.5 g/dL (5.8-8.1); Sodium 137 mmol/L (136-145)
[2023-01-24] MEDS: Rifaximin 550 MG TAB PO SCH ×2 (07:57→20:28)
[2023-01-24] MEDS: Apixaban 2.5 MG TAB PO SCH ×2 (07:58→20:28)
[2023-01-24] MEDS: Cyanocobalamin (Vitamin B-12) 1,000 MCG TAB PO SCH (07:58)
[2023-01-24] MEDS: Spironolactone 25 MG TAB PO SCH (07:58)
[2023-01-24] MEDS: Dronabinol 2.5 MG CAP PO SCH ×2 (07:59→17:05)
[2023-01-24 09:45] VITALS: BMI 21.8
[2023-01-24] MEDS: CRANBERRY 500 MG PO SCH (20:28)
[2023-01-25] MEDS: Doxycycline 100 MG CAP PO SCH ×2 (05:15→20:49)
[2023-01-25] MEDS: Dronabinol 2.5 MG CAP PO SCH ×2 (08:36→17:39)
[2023-01-25] MEDS: Rifaximin 550 MG TAB PO SCH ×2 (08:37→20:49)
[2023-01-25] MEDS: Apixaban 2.5 MG TAB PO SCH ×2 (08:37→20:49)
[2023-01-25] MEDS: Spironolactone 25 MG TAB PO SCH (08:37)
[2023-01-25] MEDS: Cyanocobalamin (Vitamin B-12) 1,000 MCG TAB PO SCH (08:37)
[2023-01-25] MEDS: CRANBERRY 500 MG PO SCH (20:54)
[2023-01-26] MEDS: Doxycycline 100 MG CAP PO SCH ×2 (08:52→20:22)
[2023-01-26] MEDS: Dronabinol 2.5 MG CAP PO SCH ×2 (08:52→17:48)
[2023-01-26] MEDS: Spironolactone 25 MG TAB PO SCH (08:52)
[2023-01-26] MEDS: Apixaban 2.5 MG TAB PO SCH ×2 (08:52→20:21)
[2023-01-26] MEDS: Cyanocobalamin (Vitamin B-12) 1,000 MCG TAB PO SCH (08:52)
[2023-01-26] MEDS: Rifaximin 550 MG TAB PO SCH ×2 (08:52→20:21)
[2023-01-26] MEDS: oxyCODONE 5 MG TAB PO PRN (09:53)
[2023-01-26] MEDS: CRANBERRY 500 MG PO SCH (20:23)
[2023-01-27] MEDS: oxyCODONE 5 MG TAB PO PRN (04:53)
[2023-01-27 07:27] VITALS: BP 134/75; TEMP 97.6
[2023-01-27] MEDS: Dronabinol 2.5 MG CAP PO SCH (07:55)
[2023-01-27] MEDS: Spironolactone 25 MG TAB PO SCH (07:56)
[2023-01-27] MEDS: Rifaximin 550 MG TAB PO SCH (08:12)
[2023-01-27] MEDS: Cyanocobalamin (Vitamin B-12) 1,000 MCG TAB PO SCH (08:13)
[2023-01-27] MEDS: Apixaban 2.5 MG TAB PO SCH (08:13)
[2023-01-27] MEDS: Doxycycline 100 MG CAP PO SCH (08:14)
[2023-01-27] MEDS ORDERED: Rifaximin 200 MG TAB PO SCH ×2 (21:00)
== END 2023-01-27 13:00 | disposition home or self-care (01) | DRG 948 ==
LOC: MADMS 20:40
PROVIDERS: ADMIT Family Medicine; ATTEND Family Medicine
PROC: 5A09457 Assistance with Respiratory Ventilation, 24-96 Consecutive Hours, Continuous Positive Airway Pressure (ICD-10-PCS; principal; 2023-01-18)
DX: R53.81 Other malaise (principal); I48.20 Chronic atrial fibrillation, unspecified; M86.60 Other chronic osteomyelitis, unspecified site; I50.30 Unspecified diastolic (congestive) heart failure; K74.60 Unspecified cirrhosis of liver; G47.33 Obstructive sleep apnea (adult) (pediatric); I73.9 Peripheral vascular disease, unspecified; I25.10 Atherosclerotic heart disease of native coronary artery without angina pectoris; I11.0 Hypertensive heart disease with heart failure; Z66 Do not resuscitate; G89.4 Chronic pain syndrome; R63.0 Anorexia; Z68.21 Body mass index [BMI] 21.0-21.9, adult; Z88.0 Allergy status to penicillin; Z88.8 Allergy status to other drugs, medicaments and biological substances; Z88.5 Allergy status to narcotic agent; Z79.01 Long term (current) use of anticoagulants; Z91.81 History of falling; Z79.899 Other long term (current) drug therapy; Z86.73 Personal history of transient ischemic attack (TIA), and cerebral infarction without residual deficits; Z95.1 Presence of aortocoronary bypass graft; Z98.890 Other specified postprocedural states; Z87.891 Personal history of nicotine dependence
CPT/HCPCS: 36415; 80053; 82140; 85014; 85018; 85025; 85049; 97602; Q0162; Q0167